=== PATIENT | male | born 1960 | race Caucasian/White ===

== ENCOUNTER 2020-10-28 11:58 | Observation (INO) ==
[2020-10-28 12:39] LABS: Hematocrit 31 % (42-52); Hemoglobin 9.7 g/dL (14.0-18.0); Mean Corpuscular HGB Conc 32 g/dL (31-36); Mean Corpuscular Hemoglobin 28 pg (27-31); Mean Corpuscular Volume 87 fL (80-94); Mean Platelet Volume 6.3 fL (7.4-10.4); Platelet Count 471 10^3/uL (150-450); Red Blood Count 3.52 10^6 /uL (4.18-5.48); Red Cell Distribution Width 20 % (10-15); White Blood Count 18.9 10^3/uL (3.5-10.8)
[2020-10-28 12:43] LABS: ABS Basophils 0.1 10^3/ul (0-0.2); ABS Eosinophils 0.1 10^3/ul (0-0.6); ABS Lymphocytes 0.9 10^3/ul (1.0-4.8); ABS Monocytes 1.2 10^3/ul (0-0.8); ABS Neutrophils 16.7 10^3/ul (1.5-7.7); Eosinophil % 0.3 %; Lymphocyte % 4.9 %
[2020-10-28 13:02] LABS: Albumin 3.2 g/dL (3.2-5.2); Albumin/Globulin Ratio 0.9 (1-3); BUN/Creatinine Ratio 24.1 (8-20); Calcium 9.2 mg/dL (8.6-10.3); EGFR African American 107.9 (>60); EGFR Non-African American 89.2 (>60); Globulin 3.6 g/dL (2-4); Magnesium 1.8 mg/dL (1.9-2.7); Potassium 4.4 mmol/L (3.5-5.0); Total Bilirubin 0.3 mg/dL (0.2-1.0); Total Protein 6.8 g/dL (6.4-8.9)
[2020-10-28] MEDS ORDERED: Nicotine Lozenge mini 2 MG LOZNG.MINI MT PRN (13:41)
[2020-10-28 14:02] LABS: C Reactive Protein 110.26 mg/L (<8.01)
[2020-10-28] MEDS: NS 0.9% 1000 ml BAG 1,000 ML IV SCH (15:57)
[2020-10-28] MEDS ORDERED: Enoxaparin 40 MG/0.4 ML SYR SUBCUT SCH (16:00)
[2020-10-28] MEDS ORDERED: Piperacillin/Tazobac ADVAN 3.375 GM in NS 0.9% 100 ml BAG 100 ML IV ONE (16:11)
[2020-10-28 16:36] LABS: Erythrocyte Sed Rate 92 mm/Hr (0-19)
[2020-10-28] MEDS ORDERED: Zosyn per Pharmacy NOTE FOLLOW UP SCH (17:00)
[2020-10-28] MEDS ORDERED: fentaNYL PATCH 12 MCG/HR 1 PATCH TRANSDERM SCH (20:00)
[2020-10-28 22:21] LABS: Urine Appearance Clear; Urine Bilirubin Negative (Negative); Urine Blood Negative (Negative); Urine Color Yellow; Urine Glucose Negative (Negative); Urine Ketones Negative (Negative); Urine Nitrite Negative (Negative); Urine Protein Negative (Negative); Urine Specific Gravity 1.009 (1.010-1.030); Urine Urobilinogen Negative (Negative)
[2020-10-28 22:35] LABS: Urine Bacteria Absent (Absent); Urine Red Blood Cell Absent (Absent); Urine White Blood Cell Trace(0-5/hpf) (Absent)
[2020-10-28] MEDS: Senna TAB 8.6 mg TAB PO SCH (23:13)
[2020-10-28] MEDS: ZOSYN 3.375 GM Q8H per EXTENDED INFUSION IV SCH (23:15)
[2020-10-29] MEDS: NS 0.9% 1000 ml BAG 1,000 ML IV SCH (02:00)
[2020-10-29] MEDS: ZOSYN 3.375 GM Q8H per EXTENDED INFUSION IV SCH (06:29)
[2020-10-29] MEDS ORDERED: fentaNYL Patch Check Q Shift NOTE FOLLOW UP SCH (07:00)
[2020-10-29 07:37] LABS: ABS Lymphocytes 0.8 10^3/ul (1.0-4.8); ABS Monocytes 1.4 10^3/ul (0-0.8); ABS Neutrophils 13.8 10^3/ul (1.5-7.7); Eosinophil % 0.3 %; Hematocrit 24 % (42-52); Hemoglobin 7.7 g/dL (14.0-18.0); Lymphocyte % 5.3 %; Mean Corpuscular HGB Conc 32 g/dL (31-36); Mean Corpuscular Hemoglobin 28 pg (27-31); Mean Corpuscular Volume 88 fL (80-94); Platelet Count 381 10^3/uL (150-450); Red Cell Distribution Width 20 % (10-15); White Blood Count 16.1 10^3/uL (3.5-10.8)
[2020-10-29 07:58] LABS: Albumin 2.6 g/dL (3.2-5.2); Calcium 8.1 mg/dL (8.6-10.3); Potassium 3.4 mmol/L (3.5-5.0); Total Bilirubin 0.4 mg/dL (0.2-1.0)
[2020-10-29 08:04] LABS: Albumin/Globulin Ratio 0.9 (1-3); EGFR African American 105.1 (>60); EGFR Non-African American 86.9 (>60); Globulin 2.8 g/dL (2-4); Total Protein 5.4 g/dL (6.4-8.9)
[2020-10-29] MEDS ORDERED: Aspirin EC 81 mg TAB.EC (enteric coated) PO SCH (09:00)
[2020-10-29] MEDS: Senna TAB 8.6 mg TAB PO SCH (09:49)
[2020-10-29 13:13] VITALS: BP 91/48
== END 2020-10-29 15:30 | disposition home or self-care (01) ==
LOC: CHOA 11:58 → MED 11:58
PROVIDERS: ADMIT Internal Medicine Hematology & Oncology; ATTEND Internal Medicine Hematology & Oncology

== ENCOUNTER 2021-10-29 14:49 | Inpatient (IN) ==
[2021-10-29 15:23] LABS: Hematocrit 35 % (42-52); Hemoglobin 11.7 g/dL (14.0-18.0); Mean Corpuscular HGB Conc 33 g/dL (31-36); Mean Corpuscular Hemoglobin 26 pg (27-31); Mean Corpuscular Volume 79 fL (80-94); Mean Platelet Volume 6.7 fL (7.4-10.4); Platelet Count 309 10^3/uL (150-450); Red Blood Count 4.49 10^6 /uL (4.18-5.48); Red Cell Distribution Width 19 % (10-15); White Blood Count 21.1 10^3/uL (3.5-10.8)
[2021-10-29 15:37] LABS: Albumin 3.4 g/dL (3.2-5.2); Calcium 8.3 mg/dL (8.6-10.3); Potassium 3.7 mmol/L (3.5-5.0); Total Bilirubin 0.4 mg/dL (0.2-1.0)
[2021-10-29] MEDS ORDERED: Piperacillin/Tazobac ADVAN 3.375 GM in NS 0.9% 100 ml BAG 100 ML IV ONE (15:40)
[2021-10-29] MEDS ORDERED: Albuterol/Ipratropium NEB.SOL (2.5/0.5 MG) 3 ML NEB.SOLN INH PRN (15:40)
[2021-10-29 15:43] LABS: Globulin 3.3 g/dL (2-4); Total Protein 6.7 g/dL (6.4-8.9); eGFR CKD-EPI 97.9 (>60)
[2021-10-29 15:44] LABS: ABS Basophils 0.1 10^3/ul (0-0.2); ABS Lymphocytes 0.6 10^3/ul (1.0-4.8); ABS Monocytes 0.8 10^3/ul (0-0.8); ABS Neutrophils 19.6 10^3/ul (1.5-7.7); Eosinophil % 0.2 %; Lymphocyte % 2.6 %
[2021-10-29] MEDS ORDERED: Zosyn per Pharmacy NOTE FOLLOW UP SCH (16:00)
[2021-10-29 16:50] LABS: C Reactive Protein 162.59 mg/L (<8.01)
[2021-10-29] MEDS ORDERED: NS 0.9% 1000 ml BAG 1,000 ML IV SCH (17:15)
[2021-10-29] MEDS ORDERED: Iohexol 300 (CONTRAST) 10 ML SDV IV ONE (19:27)
[2021-10-29] MEDS: ZOSYN 3.375 GM Q8H per EXTENDED INFUSION IV SCH (21:30)
[2021-10-30] MEDS: ZOSYN 3.375 GM Q8H per EXTENDED INFUSION IV SCH ×3 (04:21→21:52)
[2021-10-30 05:34] LABS: ABS Eosinophils 0.1 10^3/ul (0-0.6); ABS Lymphocytes 0.8 10^3/ul (1.0-4.8); ABS Monocytes 0.8 10^3/ul (0-0.8); ABS Neutrophils 18.7 10^3/ul (1.5-7.7); Eosinophil % 0.6 %; Hematocrit 31 % (42-52); Hemoglobin 10.1 g/dL (14.0-18.0); Lymphocyte % 3.9 %; Mean Corpuscular HGB Conc 33 g/dL (31-36); Mean Corpuscular Hemoglobin 26 pg (27-31); Mean Corpuscular Volume 79 fL (80-94); Mean Platelet Volume 6.6 fL (7.4-10.4); Platelet Count 280 10^3/uL (150-450); Red Blood Count 3.93 10^6 /uL (4.18-5.48); Red Cell Distribution Width 19 % (10-15); White Blood Count 20.5 10^3/uL (3.5-10.8)
[2021-10-30 05:57] LABS: Albumin 2.8 g/dL (3.2-5.2); Albumin/Globulin Ratio 1.2 (1-3); Calcium 7.7 mg/dL (8.6-10.3); Globulin 2.4 g/dL (2-4); Potassium 3.6 mmol/L (3.5-5.0); Total Bilirubin 0.3 mg/dL (0.2-1.0); Total Protein 5.2 g/dL (6.4-8.9); eGFR CKD-EPI 87.2 (>60)
[2021-10-30] MEDS: Senna TAB 8.6 mg TAB PO SCH (10:18)
[2021-10-30] MEDS: methylPREDNISolone 125 mg 2 ML VIAL IV SCH (11:20)
[2021-10-30] MEDS: Albuterol/Ipratropium NEB.SOL (2.5/0.5 MG) 3 ML NEB.SOLN INH SCH ×3 (12:02→19:41)
[2021-10-30] MEDS ORDERED: Dextran 70/Hypromellose Tears Eye Drops 15 ml BTL (for Artificials Tears) BOTH EYES PRN (21:12)
[2021-10-31] MEDS: methylPREDNISolone 125 mg 2 ML VIAL IV SCH ×3 (00:34→21:59)
[2021-10-31] MEDS: ZOSYN 3.375 GM Q8H per EXTENDED INFUSION IV SCH ×3 (03:56→21:40)
[2021-10-31] MEDS: Albuterol/Ipratropium NEB.SOL (2.5/0.5 MG) 3 ML NEB.SOLN INH SCH ×5 (08:31→19:49)
[2021-10-31] MEDS: Senna TAB 8.6 mg TAB PO SCH (10:24)
[2021-10-31] MEDS ORDERED: Albuterol 2.5mg/3 ml (0.083%) NEB.SOLN INH PRN (17:12)
[2021-10-31] MEDS: Mometasone/Formoter 200/5 MDI INH SCH (19:47)
[2021-11-01] MEDS: ZOSYN 3.375 GM Q8H per EXTENDED INFUSION IV SCH ×3 (04:50→21:29)
[2021-11-01 05:01] LABS: Hematocrit 33 % (42-52); Hemoglobin 10.7 g/dL (14.0-18.0); Mean Corpuscular HGB Conc 32 g/dL (31-36); Mean Corpuscular Hemoglobin 25 pg (27-31); Mean Corpuscular Volume 79 fL (80-94); Mean Platelet Volume 6.6 fL (7.4-10.4); Platelet Count 322 10^3/uL (150-450); Red Blood Count 4.22 10^6 /uL (4.18-5.48); Red Cell Distribution Width 19 % (10-15)
[2021-11-01 05:27] LABS: ABS Lymphocytes 0.5 10^3/ul (1.0-4.8); ABS Monocytes 0.9 10^3/ul (0-0.8); ABS Neutrophils 26.6 10^3/ul (1.5-7.7); Lymphocyte % 1.7 %
[2021-11-01 05:35] LABS: Calcium 8.7 mg/dL (8.6-10.3); Potassium 4.4 mmol/L (3.5-5.0); eGFR CKD-EPI 104.6 (>60)
[2021-11-01] MEDS: Albuterol/Ipratropium NEB.SOL (2.5/0.5 MG) 3 ML NEB.SOLN INH SCH ×4 (07:58→19:42)
[2021-11-01 09:18] LABS: C Reactive Protein 38.13 mg/L (<8.01)
[2021-11-01] MEDS: Mometasone/Formoter 200/5 MDI INH SCH ×2 (09:49→19:42)
[2021-11-01] MEDS: Senna TAB 8.6 mg TAB PO SCH (10:13)
[2021-11-01] MEDS: Carbamide Peroxide 6.5% OTIC 15 ML BTL RIGHT EAR SCH (21:30)
[2021-11-02] MEDS: ZOSYN 3.375 GM Q8H per EXTENDED INFUSION IV SCH ×3 (04:26→19:47)
[2021-11-02 04:42] LABS: Hematocrit 35 % (42-52); Hemoglobin 11.1 g/dL (14.0-18.0); Mean Corpuscular HGB Conc 32 g/dL (31-36); Mean Corpuscular Hemoglobin 25 pg (27-31); Mean Corpuscular Volume 79 fL (80-94); Mean Platelet Volume 6.4 fL (7.4-10.4); Platelet Count 322 10^3/uL (150-450); Red Blood Count 4.39 10^6 /uL (4.18-5.48); Red Cell Distribution Width 19 % (10-15); White Blood Count 23.4 10^3/uL (3.5-10.8)
[2021-11-02 05:15] LABS: Calcium 8.3 mg/dL (8.6-10.3); Magnesium 1.7 mg/dL (1.9-2.7); Potassium 4.5 mmol/L (3.5-5.0); eGFR CKD-EPI 79.3 (>60)
[2021-11-02 05:34] LABS: ABS Lymphocytes 1.2 10^3/ul (1.0-4.8); ABS Monocytes 1.7 10^3/ul (0-0.8); ABS Neutrophils 20.5 10^3/ul (1.5-7.7); Eosinophil % 0.1 %
[2021-11-02] MEDS: Albuterol/Ipratropium NEB.SOL (2.5/0.5 MG) 3 ML NEB.SOLN INH SCH (07:05)
[2021-11-02] MEDS: Mometasone/Formoter 200/5 MDI INH SCH ×3 (08:03→20:11)
[2021-11-02] MEDS ORDERED: Albuterol/Ipratropium NEB.SOL (2.5/0.5 MG) 3 ML NEB.SOLN INH PRN ×2 (08:51→08:55)
[2021-11-02] MEDS: Senna TAB 8.6 mg TAB PO SCH (09:05)
[2021-11-02] MEDS: methylPREDNISolone 125 mg 2 ML VIAL IV SCH (09:05)
[2021-11-02] MEDS: Carbamide Peroxide 6.5% OTIC 15 ML BTL RIGHT EAR SCH ×2 (09:07→21:07)
[2021-11-02] MEDS: Albuterol HFA INHALER 8 gm MDI INH PRN (15:16)
[2021-11-02] MEDS ORDERED: Metoprolol Tartrate 5 mg VIAL 5 ml VIAL (1 mg/ml) IV ONE ×2 (17:11→18:05)
[2021-11-02] MEDS ORDERED: Magnesium Sulfate 2 gm BAG 2 GM/50 ML BAG IVPB ONE (17:12)
[2021-11-02] MEDS ORDERED: Iohexol 350 (CONTRAST) 500 ML MDV IV ONE (17:16)
[2021-11-02] MEDS: Enoxaparin 60 MG/0.6 ML SYR SUBCUT SCH (19:51)
[2021-11-03] MEDS: ZOSYN 3.375 GM Q8H per EXTENDED INFUSION IV SCH ×3 (04:09→21:30)
[2021-11-03 04:27] LABS: Hematocrit 33 % (42-52); Hemoglobin 10.5 g/dL (14.0-18.0); Mean Corpuscular HGB Conc 32 g/dL (31-36); Mean Corpuscular Hemoglobin 25 pg (27-31); Mean Corpuscular Volume 80 fL (80-94); Mean Platelet Volume 6.6 fL (7.4-10.4); Platelet Count 301 10^3/uL (150-450); Red Blood Count 4.17 10^6 /uL (4.18-5.48); Red Cell Distribution Width 20 % (10-15); White Blood Count 28.6 10^3/uL (3.5-10.8)
[2021-11-03 04:28] LABS: ABS Lymphocytes 1.1 10^3/ul (1.0-4.8); ABS Monocytes 1.3 10^3/ul (0-0.8); ABS Neutrophils 26.2 10^3/ul (1.5-7.7); Eosinophil % 0.2 %; Lymphocyte % 3.9 %
[2021-11-03 05:08] LABS: Albumin/Globulin Ratio 1.2 (1-3); Calcium 8.4 mg/dL (8.6-10.3); Globulin 2.5 g/dL (2-4); Potassium 4.4 mmol/L (3.5-5.0); Total Bilirubin 0.3 mg/dL (0.2-1.0); Total Protein 5.5 g/dL (6.4-8.9); eGFR CKD-EPI 100.4 (>60)
[2021-11-03] MEDS: Albuterol HFA INHALER 8 gm MDI INH PRN ×2 (07:16→12:55)
[2021-11-03] MEDS: Mometasone/Formoter 200/5 MDI INH SCH ×2 (07:16→20:01)
[2021-11-03 09:03] LABS: C Reactive Protein 149.67 mg/L (<8.01)
[2021-11-03] MEDS: Senna TAB 8.6 mg TAB PO SCH (09:33)
[2021-11-03] MEDS: Carbamide Peroxide 6.5% OTIC 15 ML BTL RIGHT EAR SCH ×2 (09:36→21:31)
[2021-11-03] MEDS: Enoxaparin 60 MG/0.6 ML SYR SUBCUT SCH ×2 (09:36→09:43)
[2021-11-03] MEDS: methylPREDNISolone 125 mg 2 ML VIAL IV SCH (09:37)
[2021-11-03] MEDS ORDERED: Albuterol/Ipratropium NEB.SOL (2.5/0.5 MG) 3 ML NEB.SOLN INH SCH (13:00)
[2021-11-03] MEDS ORDERED: Albuterol/Ipratropium NEB.SOL (2.5/0.5 MG) 3 ML NEB.SOLN INH PRN (16:09)
[2021-11-03] MEDS: Enoxaparin 80 MG/0.8 ML SYR SUBCUT SCH (18:10)
[2021-11-03] MEDS: Albuterol HFA INHALER 8 gm MDI INH SCH ×2 (20:00→23:00)
[2021-11-04] MEDS: Albuterol HFA INHALER 8 gm MDI INH SCH ×4 (03:23→14:43)
[2021-11-04] MEDS: ZOSYN 3.375 GM Q8H per EXTENDED INFUSION IV SCH ×3 (04:15→20:15)
[2021-11-04 05:04] LABS: Hematocrit 36 % (42-52); Hemoglobin 11.5 g/dL (14.0-18.0); Mean Corpuscular HGB Conc 32 g/dL (31-36); Mean Corpuscular Hemoglobin 25 pg (27-31); Mean Corpuscular Volume 79 fL (80-94); Mean Platelet Volume 6.8 fL (7.4-10.4); Platelet Count 350 10^3/uL (150-450); Red Blood Count 4.57 10^6 /uL (4.18-5.48); Red Cell Distribution Width 19 % (10-15); White Blood Count 30.9 10^3/uL (3.5-10.8)
[2021-11-04 05:11] LABS: ABS Eosinophils 0.1 10^3/ul (0-0.6); ABS Lymphocytes 1.2 10^3/ul (1.0-4.8); ABS Monocytes 1.1 10^3/ul (0-0.8); ABS Neutrophils 28.5 10^3/ul (1.5-7.7); Eosinophil % 0.2 %; Lymphocyte % 3.9 %; Nucleated Red Blood Cells % 0.1
[2021-11-04] MEDS: Enoxaparin 80 MG/0.8 ML SYR SUBCUT SCH (05:24)
[2021-11-04 05:26] LABS: C Reactive Protein 90.86 mg/L (<8.01); Calcium 8.8 mg/dL (8.6-10.3); Potassium 4.4 mmol/L (3.5-5.0); eGFR CKD-EPI 104.6 (>60)
[2021-11-04] MEDS: Mometasone/Formoter 200/5 MDI INH SCH ×2 (07:30→19:35)
[2021-11-04] MEDS: methylPREDNISolone 125 mg 2 ML VIAL IV SCH (08:21)
[2021-11-04] MEDS: Senna TAB 8.6 mg TAB PO SCH (08:21)
[2021-11-04] MEDS: Carbamide Peroxide 6.5% OTIC 15 ML BTL RIGHT EAR SCH ×2 (08:24→20:16)
[2021-11-04] MEDS: Albuterol 2.5mg/3 ml (0.083%) NEB.SOLN INH SCH (15:37)
[2021-11-05] MEDS: Albuterol HFA INHALER 8 gm MDI INH SCH ×3 (02:50→08:04)
[2021-11-05] MEDS: ZOSYN 3.375 GM Q8H per EXTENDED INFUSION IV SCH ×3 (04:00→20:54)
[2021-11-05 04:17] LABS: Hematocrit 35 % (42-52); Hemoglobin 11.2 g/dL (14.0-18.0); Mean Corpuscular HGB Conc 32 g/dL (31-36); Mean Corpuscular Hemoglobin 26 pg (27-31); Mean Corpuscular Volume 79 fL (80-94); Mean Platelet Volume 6.6 fL (7.4-10.4); Platelet Count 365 10^3/uL (150-450); Red Blood Count 4.39 10^6 /uL (4.18-5.48); Red Cell Distribution Width 20 % (10-15); White Blood Count 27.5 10^3/uL (3.5-10.8)
[2021-11-05 04:27] LABS: ABS Basophils 0.2 10^3/ul (0-0.2); ABS Eosinophils 0.1 10^3/ul (0-0.6); ABS Lymphocytes 1.5 10^3/ul (1.0-4.8); ABS Neutrophils 24.8 10^3/ul (1.5-7.7); Eosinophil % 0.2 %; Lymphocyte % 5.3 %
[2021-11-05] MEDS: Albuterol 2.5mg/3 ml (0.083%) NEB.SOLN INH SCH ×2 (04:33→04:43)
[2021-11-05] MEDS: Mometasone/Formoter 200/5 MDI INH SCH ×2 (08:04→19:57)
[2021-11-05] MEDS: Senna TAB 8.6 mg TAB PO SCH (08:14)
[2021-11-05] MEDS: Carbamide Peroxide 6.5% OTIC 15 ML BTL RIGHT EAR SCH ×2 (09:19→20:37)
[2021-11-05] MEDS: methylPREDNISolone 125 mg 2 ML VIAL IV SCH (09:20)
[2021-11-05] MEDS ORDERED: Albuterol HFA INHALER 8 gm MDI INH PRN (09:51)
[2021-11-05] MEDS: Albuterol/Ipratropium NEB.SOL (2.5/0.5 MG) 3 ML NEB.SOLN INH SCH ×3 (10:44→19:57)
[2021-11-06] MEDS: ZOSYN 3.375 GM Q8H per EXTENDED INFUSION IV SCH ×2 (04:44→13:02)
[2021-11-06] MEDS: Albuterol/Ipratropium NEB.SOL (2.5/0.5 MG) 3 ML NEB.SOLN INH SCH ×3 (07:32→15:31)
[2021-11-06] MEDS: Mometasone/Formoter 200/5 MDI INH SCH ×2 (07:34→20:04)
[2021-11-06] MEDS: Senna TAB 8.6 mg TAB PO SCH (08:35)
[2021-11-06] MEDS: methylPREDNISolone 125 mg 2 ML VIAL IV SCH (08:35)
[2021-11-06] MEDS: Carbamide Peroxide 6.5% OTIC 15 ML BTL RIGHT EAR SCH ×3 (09:57→20:56)
[2021-11-06] MEDS: Albuterol HFA INHALER 8 gm MDI INH SCH (20:05)
[2021-11-06 23:49] LABS: Cryptococcus Antigen w/Titer Negative (Negative)
[2021-11-06 23:58] LABS: Aspergillus (Galactomannan) Ag <0.500 index (<0.5)
[2021-11-07] MEDS: Mometasone/Formoter 200/5 MDI INH SCH ×2 (07:49→19:47)
[2021-11-07] MEDS: Albuterol HFA INHALER 8 gm MDI INH SCH ×2 (07:49→19:46)
[2021-11-07] MEDS: Carbamide Peroxide 6.5% OTIC 15 ML BTL RIGHT EAR SCH ×2 (08:58→22:04)
[2021-11-07] MEDS: Senna TAB 8.6 mg TAB PO SCH (09:00)
[2021-11-07] MEDS: methylPREDNISolone 125 mg 2 ML VIAL IV SCH (09:00)
[2021-11-08] MEDS: Albuterol HFA INHALER 8 gm MDI INH SCH ×2 (08:13→18:59)
[2021-11-08] MEDS: Mometasone/Formoter 200/5 MDI INH SCH ×2 (08:14→18:58)
[2021-11-08] MEDS: Carbamide Peroxide 6.5% OTIC 15 ML BTL RIGHT EAR SCH ×2 (08:21→20:10)
[2021-11-08] MEDS: methylPREDNISolone 125 mg 2 ML VIAL IV SCH (08:22)
[2021-11-08] MEDS: Senna TAB 8.6 mg TAB PO SCH (08:23)
[2021-11-09 05:25] LABS: Hematocrit 38 % (42-52); Hemoglobin 11.7 g/dL (14.0-18.0); Mean Corpuscular HGB Conc 31 g/dL (31-36); Mean Corpuscular Hemoglobin 25 pg (27-31); Mean Corpuscular Volume 79 fL (80-94); Mean Platelet Volume 6.9 fL (7.4-10.4); Platelet Count 446 10^3/uL (150-450); Red Blood Count 4.73 10^6 /uL (4.18-5.48); Red Cell Distribution Width 20 % (10-15); White Blood Count 32.4 10^3/uL (3.5-10.8)
[2021-11-09 05:46] LABS: Albumin 3.4 g/dL (3.2-5.2); Albumin/Globulin Ratio 1.3 (1-3); Calcium 8.9 mg/dL (8.6-10.3); Globulin 2.6 g/dL (2-4); Total Bilirubin 0.3 mg/dL (0.2-1.0); eGFR CKD-EPI 100.8 (>60)
[2021-11-09] MEDS: Mometasone/Formoter 200/5 MDI INH SCH ×2 (07:41→20:02)
[2021-11-09] MEDS: Albuterol HFA INHALER 8 gm MDI INH SCH ×2 (07:43→20:02)
[2021-11-09] MEDS ORDERED: Calcium Carb (TUMS) 500 mg CHEW TAB PO PRN (08:26)
[2021-11-09] MEDS: Senna TAB 8.6 mg TAB PO SCH (09:13)
[2021-11-09] MEDS: methylPREDNISolone 125 mg 2 ML VIAL IV SCH (09:16)
[2021-11-09] MEDS: Carbamide Peroxide 6.5% OTIC 15 ML BTL RIGHT EAR SCH ×2 (13:22→21:22)
[2021-11-10 07:20] VITALS: BP 107/64
[2021-11-10] MEDS: Mometasone/Formoter 200/5 MDI INH SCH (07:38)
[2021-11-10] MEDS: Albuterol HFA INHALER 8 gm MDI INH SCH (07:38)
[2021-11-10] MEDS: Senna TAB 8.6 mg TAB PO SCH (09:56)
[2021-11-10] MEDS: Carbamide Peroxide 6.5% OTIC 15 ML BTL RIGHT EAR SCH (09:59)
[2021-11-10] MEDS: methylPREDNISolone 125 mg 2 ML VIAL IV SCH (09:59)
== END 2021-11-10 11:15 | disposition home or self-care (01) | DRG 133 ==
LOC: MED 14:49 → CHOA 14:49
PROVIDERS: ADMIT Internal Medicine Medical Oncology; ATTEND Internal Medicine Hematology & Oncology

== ENCOUNTER 2021-12-18 17:33 | Inpatient (IN) ==
[2021-12-18 18:09] LABS: Hematocrit 28 % (42-52); Hemoglobin 8.9 g/dL (14.0-18.0); Mean Corpuscular HGB Conc 32 g/dL (31-36); Mean Corpuscular Hemoglobin 25 pg (27-31); Mean Corpuscular Volume 76 fL (80-94); Mean Platelet Volume 6.4 fL (7.4-10.4); Platelet Count 452 10^3/uL (150-450); Red Blood Count 3.63 10^6 /uL (4.18-5.48); Red Cell Distribution Width 21 % (10-15); White Blood Count 37.1 10^3/uL (3.5-10.8)
[2021-12-18] MEDS ORDERED: Vancomycin 1,250 MG in NS 0.9% 250 ml 250 ML IVPB ONE (18:14)
[2021-12-18] MEDS ORDERED: Piperacillin/Tazobac ADVAN 3.375 GM in NS 0.9% 100 ml BAG 100 ML IV ONE (18:14)
[2021-12-18] MEDS ORDERED: NS 0.9% 1000 ml BAG 1,000 ML IV ONE ×2 (18:19→23:17)
[2021-12-18 18:33] LABS: Venous Bicarbonate HCO3 23.1 mmol/L (24-28)
[2021-12-18 18:44] LABS: ABS Basophils 0.1 10^3/ul (0-0.2); ABS Lymphocytes 0.4 10^3/ul (1.0-4.8); ABS Monocytes 1.2 10^3/ul (0-0.8); ABS Neutrophils 35.4 10^3/ul (1.5-7.7); Lymphocyte % 1.1 %
[2021-12-18 18:45] LABS: Calcium 8.4 mg/dL (8.6-10.3); Potassium 5.1 mmol/L (3.5-5.0)
[2021-12-18] MEDS ORDERED: Ketamine HCL 50 mg/ml 10 ml VIAL (500 MG) IV ONE (18:48)
[2021-12-18] MEDS ORDERED: Iohexol 350 (CONTRAST) 500 ML MDV IV ONE (20:20)
[2021-12-18] MEDS ORDERED: Albuterol HFA INHALER 8 gm MDI INH PRN (23:43)
[2021-12-18] MEDS ORDERED: Vancomycin per Pharmacy 1 EA NOTE FOLLOW UP SCH (23:45)
[2021-12-18 23:51] LABS: C Reactive Protein 260.39 mg/L (<8.01)
[2021-12-19 00:55] LABS: Urine Appearance Clear; Urine Bilirubin Negative (Negative); Urine Blood 1+ (Negative); Urine Color Straw; Urine Glucose Negative (Negative); Urine Ketones Negative (Negative); Urine Nitrite Negative (Negative); Urine Protein Negative (Negative); Urine Specific Gravity 1.019 (1.002-1.030); Urine Urobilinogen Negative (Negative)
[2021-12-19 01:01] LABS: Urine Bacteria Absent (Absent); Urine Red Blood Cell Trace(0-2/hpf) (Absent); Urine White Blood Cell Absent (Absent)
[2021-12-19 01:11] LABS: Urine Creatinine Concentration 35.67 mg/dL
[2021-12-19] MEDS ORDERED: Cefepime 2 GM IV - ED ONCE IV ONE (01:30)
[2021-12-19] MEDS: Cefepime 2 GM in Dextrose 2 GM/50 ML BAG IV SCH ×2 (01:36→12:52)
[2021-12-19] MEDS: Hydrocortisone INJ 100 MG/2ML 2 ML VIAL IV SCH ×5 (01:40→20:30)
[2021-12-19] MEDS ORDERED: Norepinephrine 16MCG/ML BAGD5W 4,000 MCG/250 ML BAG IV ONE (01:44)
[2021-12-19] MEDS: Norepinephrine 16MCG/ML BAGD5W 4,000 MCG/250 ML BAG IV SCH ×2 (01:56→09:04)
[2021-12-19 05:42] LABS: Hematocrit 28 % (42-52); Hemoglobin 8.8 g/dL (14.0-18.0); Mean Corpuscular HGB Conc 31 g/dL (31-36); Mean Corpuscular Hemoglobin 24 pg (27-31); Mean Corpuscular Volume 77 fL (80-94); Mean Platelet Volume 6.5 fL (7.4-10.4); Platelet Count 509 10^3/uL (150-450); Red Blood Count 3.64 10^6 /uL (4.18-5.48); Red Cell Distribution Width 20 % (10-15); White Blood Count 46.1 10^3/uL (3.5-10.8)
[2021-12-19 05:47] LABS: ABS Basophils 0.2 10^3/ul (0-0.2); ABS Lymphocytes 0.3 10^3/ul (1.0-4.8); ABS Monocytes 0.9 10^3/ul (0-0.8); ABS Neutrophils 44.8 10^3/ul (1.5-7.7); Lymphocyte % 0.6 %
[2021-12-19 06:16] LABS: Calcium 8.1 mg/dL (8.6-10.3); Magnesium 1.8 mg/dL (1.9-2.7); Phosphorus 3.5 mg/dL (2.5-5.0); Potassium 4.3 mmol/L (3.5-5.0); eGFR CKD-EPI 62.1 (>60)
[2021-12-19] MEDS ORDERED: Magnesium Sulfate 2 gm BAG 2 GM/50 ML BAG IVPB ONE (06:24)
[2021-12-19] MEDS ORDERED: Dextrose 50% Syringe 50 ml 25 GM/50 ML SYRINGE IV PUSH PRN (06:42)
[2021-12-19] MEDS: Aspirin EC 81 mg TAB.EC (enteric coated) PO SCH (08:27)
[2021-12-19] MEDS: Senna TAB 8.6 mg TAB PO SCH (08:28)
[2021-12-19] MEDS ORDERED: DEXAMETHASONE 2 MG PO SCH (09:00)
[2021-12-19] MEDS: Vancomycin 1000 MG in NS 0.9% 250 ML IVPB SCH ×2 (09:08→19:49)
[2021-12-19] MEDS: Mometasone/Formoter 200/5 MDI INH SCH (09:34)
[2021-12-19] MEDS: Pantoprazole VIAL 40 MG VIAL IV SCH (12:51)
[2021-12-19] MEDS: NS 0.9% 1000 ml BAG 1,000 ML IV SCH (15:50)
[2021-12-19] MEDS ORDERED: Dextran 70/Hypromellose Tears Eye Drops 15 ml BTL (for Artificials Tears) RIGHT EYE PRN (23:39)
[2021-12-20] MEDS: Cefepime 2 GM in Dextrose 2 GM/50 ML BAG IV SCH ×2 (02:13→13:56)
[2021-12-20] MEDS: NS 0.9% 1000 ml BAG 1,000 ML IV SCH (04:10)
[2021-12-20] MEDS: Mometasone/Formoter 200/5 MDI INH SCH ×3 (04:40→21:43)
[2021-12-20] MEDS: Hydrocortisone INJ 100 MG/2ML 2 ML VIAL IV SCH ×3 (04:40→17:59)
[2021-12-20 04:51] LABS: Hematocrit 26 % (42-52); Hemoglobin 8.3 g/dL (14.0-18.0); Mean Corpuscular HGB Conc 32 g/dL (31-36); Mean Corpuscular Hemoglobin 24 pg (27-31); Mean Corpuscular Volume 76 fL (80-94); Mean Platelet Volume 6.3 fL (7.4-10.4); Platelet Count 449 10^3/uL (150-450); Red Blood Count 3.41 10^6 /uL (4.18-5.48); Red Cell Distribution Width 20 % (10-15); White Blood Count 43.1 10^3/uL (3.5-10.8)
[2021-12-20 04:53] LABS: ABS Lymphocytes 0.5 10^3/ul (1.0-4.8); ABS Monocytes 0.8 10^3/ul (0-0.8); ABS Neutrophils 41.7 10^3/ul (1.5-7.7); Eosinophil % 0.1 %; Lymphocyte % 1.2 %
[2021-12-20 05:17] LABS: Calcium 7.9 mg/dL (8.6-10.3); Phosphorus 2.2 mg/dL (2.5-5.0); Potassium 4.3 mmol/L (3.5-5.0); eGFR CKD-EPI 106.5 (>60)
[2021-12-20] MEDS ORDERED: NS 0.9% 250 ml 250 ML ONE (08:00)
[2021-12-20] MEDS: Vancomycin 1000 MG in NS 0.9% 250 ML IVPB SCH ×2 (08:06→21:14)
[2021-12-20] MEDS: Aspirin EC 81 mg TAB.EC (enteric coated) PO SCH (08:06)
[2021-12-20] MEDS: Senna TAB 8.6 mg TAB PO SCH (08:07)
[2021-12-20] MEDS: Pantoprazole VIAL 40 MG VIAL IV SCH (12:09)
[2021-12-21] MEDS: Cefepime 2 GM in Dextrose 2 GM/50 ML BAG IV SCH ×2 (00:59→13:40)
[2021-12-21] MEDS: Hydrocortisone INJ 100 MG/2ML 2 ML VIAL IV SCH ×3 (00:59→17:03)
[2021-12-21] MEDS ORDERED: Vancomycin Trough Check NOTE FOLLOW UP ONE (07:30)
[2021-12-21 07:33] LABS: Hematocrit 29 % (42-52); Hemoglobin 9.1 g/dL (14.0-18.0); Mean Corpuscular HGB Conc 31 g/dL (31-36); Mean Corpuscular Hemoglobin 24 pg (27-31); Mean Corpuscular Volume 77 fL (80-94); Mean Platelet Volume 6.1 fL (7.4-10.4); Platelet Count 454 10^3/uL (150-450); Red Cell Distribution Width 20 % (10-15); White Blood Count 40.2 10^3/uL (3.5-10.8)
[2021-12-21 07:42] LABS: ABS Lymphocytes 0.5 10^3/ul (1.0-4.8); ABS Neutrophils 38.7 10^3/ul (1.5-7.7); Lymphocyte % 1.2 %
[2021-12-21 08:13] LABS: Calcium 8.3 mg/dL (8.6-10.3); Magnesium 1.7 mg/dL (1.9-2.7); Potassium 3.6 mmol/L (3.5-5.0); eGFR CKD-EPI 111.4 (>60)
[2021-12-21] MEDS: Mometasone/Formoter 200/5 MDI INH SCH ×2 (09:01→19:34)
[2021-12-21] MEDS: Aspirin EC 81 mg TAB.EC (enteric coated) PO SCH (09:24)
[2021-12-21] MEDS: Vancomycin 1000 MG in NS 0.9% 250 ML IVPB SCH (09:24)
[2021-12-21] MEDS: Senna TAB 8.6 mg TAB PO SCH (09:25)
[2021-12-21] MEDS: Pantoprazole VIAL 40 MG VIAL IV SCH (11:41)
[2021-12-21] MEDS: Vancomycin 1,250 MG in NS 0.9% 250 ml 250 ML IVPB SCH (17:03)
[2021-12-22] MEDS: Cefepime 2 GM in Dextrose 2 GM/50 ML BAG IV SCH ×2 (01:18→13:38)
[2021-12-22] MEDS: Hydrocortisone INJ 100 MG/2ML 2 ML VIAL IV SCH ×3 (01:18→19:53)
[2021-12-22] MEDS: Vancomycin 1,250 MG in NS 0.9% 250 ml 250 ML IVPB SCH ×2 (05:15→17:12)
[2021-12-22] MEDS: Aspirin EC 81 mg TAB.EC (enteric coated) PO SCH (07:43)
[2021-12-22] MEDS: Senna TAB 8.6 mg TAB PO SCH (07:43)
[2021-12-22] MEDS: Mometasone/Formoter 200/5 MDI INH SCH ×2 (08:00→19:15)
[2021-12-22 08:12] LABS: Hematocrit 29 % (42-52); Hemoglobin 9.2 g/dL (14.0-18.0); Mean Corpuscular HGB Conc 31 g/dL (31-36); Mean Corpuscular Hemoglobin 24 pg (27-31); Mean Corpuscular Volume 78 fL (80-94); Mean Platelet Volume 6.3 fL (7.4-10.4); Platelet Count 443 10^3/uL (150-450); Red Blood Count 3.78 10^6 /uL (4.18-5.48); Red Cell Distribution Width 21 % (10-15)
[2021-12-22 09:02] LABS: Albumin 2.5 g/dL (3.2-5.2); Albumin/Globulin Ratio 0.9 (1-3); Globulin 2.7 g/dL (2-4); Potassium 3.2 mmol/L (3.5-5.0); Total Bilirubin 0.3 mg/dL (0.2-1.0); Total Protein 5.2 g/dL (6.4-8.9); eGFR CKD-EPI 114.6 (>60)
[2021-12-22 09:09] LABS: ABS Lymphocytes 0.7 10^3/ul (1.0-4.8); ABS Monocytes 1.1 10^3/ul (0-0.8); ABS Neutrophils 42.2 10^3/ul (1.5-7.7); Lymphocyte % 1.5 %
[2021-12-22] MEDS: Pantoprazole VIAL 40 MG VIAL IV SCH (12:04)
[2021-12-23] MEDS: Cefepime 2 GM in Dextrose 2 GM/50 ML BAG IV SCH (01:56)
[2021-12-23 04:38] LABS: Albumin 2.5 g/dL (3.2-5.2); Globulin 2.4 g/dL (2-4); Potassium 3.5 mmol/L (3.5-5.0); Total Bilirubin 0.3 mg/dL (0.2-1.0); Total Protein 4.9 g/dL (6.4-8.9); Vancomycin Trough 13.3 mcg/mL; eGFR CKD-EPI 112.7 (>60)
[2021-12-23] MEDS ORDERED: Vancomycin Trough Check NOTE FOLLOW UP ONE (05:30)
[2021-12-23] MEDS: Vancomycin 1,250 MG in NS 0.9% 250 ml 250 ML IVPB SCH (05:48)
[2021-12-23] MEDS: Mometasone/Formoter 200/5 MDI INH SCH (07:48)
[2021-12-23] MEDS: Senna TAB 8.6 mg TAB PO SCH (08:53)
[2021-12-23] MEDS: Aspirin EC 81 mg TAB.EC (enteric coated) PO SCH (08:53)
[2021-12-23] MEDS: Hydrocortisone INJ 100 MG/2ML 2 ML VIAL IV SCH (08:53)
[2021-12-23 15:37] VITALS: BP 125/68
== END 2021-12-23 16:45 | disposition home or self-care (01) | DRG 720 ==
LOC: ED 17:33 → EDHOLD 23:13 → ICU 12-19 00:18 → MED 12-20 12:53
PROVIDERS: ADMIT Student in an Organized Health Care Education/Training Program; ATTEND Internal Medicine Medical Oncology

== ENCOUNTER 2021-12-26 12:04 | Inpatient (IN) ==
[2021-12-26] MEDS ORDERED: Cefepime 2 GM in Dextrose 2 GM/50 ML BAG IV ONE (12:37)
[2021-12-26] MEDS ORDERED: Lactated Ringers 1000 ml BAG 1,000 ML IV ONE ×3 (12:40→17:04)
[2021-12-26] MEDS ORDERED: Vancomycin 1,000 MG in NS 0.9% 250 ml 250 ML IVPB SCH (13:00)
[2021-12-26 13:17] LABS: Hematocrit 26 % (42-52); Hemoglobin 8.1 g/dL (14.0-18.0); Mean Corpuscular HGB Conc 31 g/dL (31-36); Mean Corpuscular Hemoglobin 24 pg (27-31); Mean Corpuscular Volume 76 fL (80-94); Mean Platelet Volume 6.8 fL (7.4-10.4); Platelet Count 370 10^3/uL (150-450); Red Blood Count 3.46 10^6 /uL (4.18-5.48); Red Cell Distribution Width 21 % (10-15); White Blood Count 31.4 10^3/uL (3.5-10.8)
[2021-12-26 13:26] LABS: Activated Partial Thrombo Time 33.3 seconds (26.0-38.0); INR 1.4 (0.86-1.15)
[2021-12-26 13:52] LABS: Albumin 2.5 g/dL (3.2-5.2); Calcium 7.9 mg/dL (8.6-10.3); Globulin 2.4 g/dL (2-4); Potassium 4.2 mmol/L (3.5-5.0); Total Bilirubin 0.6 mg/dL (0.2-1.0); Total Protein 4.9 g/dL (6.4-8.9); eGFR CKD-EPI 97.6 (>60)
[2021-12-26] MEDS ORDERED: Vancomycin 1,000 MG - ED ONCE IVPB ONE (14:00)
[2021-12-26 14:40] LABS: Erythrocyte Sed Rate 91 mm/Hr (0-19)
[2021-12-26 15:03] LABS: High Sensitivity Troponin 1 Hr 247 pg/mL (<20)
[2021-12-26 15:25] LABS: ABS Eosinophils 0.1 10^3/ul (0-0.6); ABS Lymphocytes 0.7 10^3/ul (1.0-4.8); ABS Monocytes 1.6 10^3/ul (0-0.8); ABS Neutrophils 28.8 10^3/ul (1.5-7.7); Eosinophil % 0.4 %; Lymphocyte % 2.3 %; Nucleated Red Blood Cells % 0.1
[2021-12-26] MEDS ORDERED: Piperacillin/Tazobac ADVAN 3.375 GM in NS 0.9% 100 ml BAG 100 ML IV ONE (17:01)
[2021-12-26] MEDS ORDERED: Dextran 70/Hypromellose Tears Eye Drops 15 ml BTL (for Artificials Tears) RIGHT EYE PRN (17:43)
[2021-12-26] MEDS ORDERED: Albuterol HFA INHALER 8 gm MDI INH PRN (17:43)
[2021-12-26] MEDS ORDERED: Zosyn per Pharmacy NOTE FOLLOW UP SCH (18:00)
[2021-12-26 18:16] LABS: Urine Appearance Cloudy; Urine Bilirubin Negative (Negative); Urine Blood 1+ (Negative); Urine Color Yellow; Urine Glucose Negative (Negative); Urine Ketones Negative (Negative); Urine Nitrite Negative (Negative); Urine Protein 1+(30 mg/dL) (Negative); Urine Specific Gravity 1.015 (1.002-1.030); Urine Urobilinogen Negative (Negative)
[2021-12-26 18:38] LABS: Urine Bacteria Absent (Absent); Urine Red Blood Cell 1+(3-5/hpf) (Absent); Urine Squamous Epithelial Cell Present (Absent); Urine White Blood Cell 1+(6-10/hpf) (Absent)
[2021-12-26] MEDS: Hydrocortisone INJ 100 MG/2ML 2 ML VIAL IV SCH (19:13)
[2021-12-26] MEDS ORDERED: Dextrose 50% Syringe 50 ml 25 GM/50 ML SYRINGE IV PUSH PRN (19:13)
[2021-12-26] MEDS ORDERED: Digoxin IV 0.5 MG/2 ML AMP (0.25 MG/ML) IV SLOW PU ONE (20:31)
[2021-12-26] MEDS ORDERED: NS 0.9% 1000 ml BAG 1,000 ML IV ONE (20:33)
[2021-12-26] MEDS: NS 0.9% 1000 ml BAG 1,000 ML IV SCH (21:30)
[2021-12-26] MEDS ORDERED: Metoprolol Tartrate 5 mg VIAL 5 ml VIAL (1 mg/ml) IV ONE ×2 (21:35→21:58)
[2021-12-26] MEDS ORDERED: ZOSYN 3.375 GM per EXTENDED INFUSION IV ONE (23:00)
[2021-12-26] MEDS: PHENYLEPHRINE DRIP IVPREMIX 50 MG/250 ML BAG IV SCH (23:44)
[2021-12-27] MEDS: Hydrocortisone INJ 100 MG/2ML 2 ML VIAL IV SCH ×3 (02:34→18:52)
[2021-12-27 06:38] LABS: Calcium 7.8 mg/dL (8.6-10.3); Magnesium 1.5 mg/dL (1.9-2.7); Potassium 3.8 mmol/L (3.5-5.0)
[2021-12-27] MEDS ORDERED: ZOSYN 3.375 GM per EXTENDED INFUSION IV ONE (08:00)
[2021-12-27] MEDS ORDERED: Senna/Docusate 8.6/50 mg (NF) TAB PO SCH (09:00)
[2021-12-27] MEDS: Senna TAB 8.6 mg TAB PO SCH (09:16)
[2021-12-27] MEDS: Aspirin EC 81 mg TAB.EC (enteric coated) PO SCH (09:17)
[2021-12-27] MEDS: NS 0.9% 1000 ml BAG 1,000 ML IV SCH (11:24)
[2021-12-27] MEDS: PHENYLEPHRINE DRIP IVPREMIX 50 MG/250 ML BAG IV SCH (16:14)
[2021-12-27] MEDS ORDERED: ZOSYN 3.375 GM Q8H per EXTENDED INFUSION IV ONE (17:00)
[2021-12-27] MEDS ORDERED: Digoxin IV 0.5 MG/2 ML AMP (0.25 MG/ML) IV SLOW PU ONE (19:16)
[2021-12-27] MEDS ORDERED: Magnesium Sulfate IV 3 GM in NS 0.9% 100 ml BAG 100 ML IVPB ONE (22:52)
[2021-12-27] MEDS ORDERED: Magnesium Sulfate 2 GM IV (Premix) IVPB ONE (23:00)
[2021-12-27 23:12] LABS: Hematocrit 30 % (42-52); Mean Corpuscular HGB Conc 31 g/dL (31-36); Mean Corpuscular Hemoglobin 24 pg (27-31); Mean Corpuscular Volume 77 fL (80-94); Mean Platelet Volume 6.6 fL (7.4-10.4); Platelet Count 431 10^3/uL (150-450); Red Blood Count 3.83 10^6 /uL (4.18-5.48); Red Cell Distribution Width 20 % (10-15); White Blood Count 49.8 10^3/uL (3.5-10.8)
[2021-12-27 23:34] LABS: Microcytosis 1+
[2021-12-27 23:35] LABS: Anisocytosis 1+; Toxic Granulation 1+
[2021-12-27 23:36] LABS: ABS Basophils 0.5 10^3/ul (0-0.2); ABS Lymphocytes 0.3 10^3/ul (1.0-4.8); ABS Monocytes 1.1 10^3/ul (0-0.8); Lymphocyte % 0.6 %
[2021-12-27 23:54] LABS: Albumin 2.4 g/dL (3.2-5.2); Calcium 7.6 mg/dL (8.6-10.3); Globulin 2.3 g/dL (2-4); Magnesium 1.5 mg/dL (1.9-2.7); Potassium 3.7 mmol/L (3.5-5.0); Total Bilirubin 0.3 mg/dL (0.2-1.0); Total Protein 4.7 g/dL (6.4-8.9); eGFR CKD-EPI 107.5 (>60)
[2021-12-28] MEDS: Hydrocortisone INJ 100 MG/2ML 2 ML VIAL IV SCH ×3 (02:29→17:33)
[2021-12-28] MEDS ORDERED: ZOSYN 3.375 GM per EXTENDED INFUSION IV ONE (03:00)
[2021-12-28] MEDS ORDERED: Magnesium Sulfate IV 3 GM in NS 0.9% 100 ml BAG 100 ML IVPB ONE (03:43)
[2021-12-28] MEDS ORDERED: Magnesium Sulfate 2 GM IV (Premix) IVPB ONE (04:00)
[2021-12-28] MEDS ORDERED: Magnesium Sulfate 1 GM IV 1 GM/100 ML BAG IV ONE ×2 (05:00)
[2021-12-28 06:36] LABS: Hematocrit 27 % (42-52); Hemoglobin 8.3 g/dL (14.0-18.0); Mean Corpuscular HGB Conc 31 g/dL (31-36); Mean Corpuscular Hemoglobin 24 pg (27-31); Mean Corpuscular Volume 78 fL (80-94); Mean Platelet Volume 6.8 fL (7.4-10.4); Platelet Count 385 10^3/uL (150-450); Red Blood Count 3.42 10^6 /uL (4.18-5.48); Red Cell Distribution Width 21 % (10-15); White Blood Count 39.2 10^3/uL (3.5-10.8)
[2021-12-28 06:52] LABS: Albumin 2.2 g/dL (3.2-5.2); Calcium 7.6 mg/dL (8.6-10.3); Globulin 2.2 g/dL (2-4); Phosphorus 2.5 mg/dL (2.5-5.0); Potassium 3.4 mmol/L (3.5-5.0); Total Bilirubin 0.3 mg/dL (0.2-1.0); Total Protein 4.4 g/dL (6.4-8.9); eGFR CKD-EPI 111.4 (>60)
[2021-12-28] MEDS: Aspirin EC 81 mg TAB.EC (enteric coated) PO SCH (09:10)
[2021-12-28] MEDS: Senna TAB 8.6 mg TAB PO SCH (09:11)
[2021-12-28] MEDS ORDERED: Potassium Chlor 10 meq TAB PO ONE (09:47)
[2021-12-28] MEDS ORDERED: Potassium Chlor 20 meq TAB.ER PO ONE (10:30)
[2021-12-28] MEDS ORDERED: ZOSYN 3.375 GM Q8H per EXTENDED INFUSION IV ONE (11:00)
[2021-12-28] MEDS: ZOSYN 3.375 GM Q8H per EXTENDED INFUSION IV SCH (20:21)
[2021-12-28] MEDS: Mometasone/Formoter 200/5 MDI INH SCH (20:52)
[2021-12-29] MEDS: Linezolid 600 MG IVPREMIX(*) 600 MG/300 ML BAG IVPB SCH ×2 (01:04→12:18)
[2021-12-29] MEDS: Hydrocortisone INJ 100 MG/2ML 2 ML VIAL IV SCH ×3 (03:46→22:43)
[2021-12-29] MEDS: ZOSYN 3.375 GM Q8H per EXTENDED INFUSION IV SCH ×3 (03:48→22:48)
[2021-12-29] MEDS: Mometasone/Formoter 200/5 MDI INH SCH ×3 (07:49→20:37)
[2021-12-29] MEDS: Aspirin EC 81 mg TAB.EC (enteric coated) PO SCH (09:40)
[2021-12-29] MEDS: Senna TAB 8.6 mg TAB PO SCH (09:41)
[2021-12-29 12:05] LABS: Hematocrit 29 % (42-52); Hemoglobin 8.6 g/dL (14.0-18.0); Mean Corpuscular HGB Conc 30 g/dL (31-36); Mean Corpuscular Hemoglobin 23 pg (27-31); Mean Corpuscular Volume 77 fL (80-94); Mean Platelet Volume 6.5 fL (7.4-10.4); Platelet Count 392 10^3/uL (150-450); Red Cell Distribution Width 21 % (10-15); White Blood Count 32.4 10^3/uL (3.5-10.8)
[2021-12-29 12:19] LABS: ABS Lymphocytes 0.4 10^3/ul (1.0-4.8); Lymphocyte % 1.2 %
[2021-12-29 12:23] LABS: Albumin 2.6 g/dL (3.2-5.2); Calcium 7.9 mg/dL (8.6-10.3); Globulin 2.7 g/dL (2-4); Magnesium 1.7 mg/dL (1.9-2.7); Total Bilirubin 0.3 mg/dL (0.2-1.0); Total Protein 5.3 g/dL (6.4-8.9); eGFR CKD-EPI 109.7 (>60)
[2021-12-29] MEDS ORDERED: Magnesium Sulfate IV 3 GM in NS 0.9% 100 ml BAG 100 ML IVPB ONE (13:21)
[2021-12-29] MEDS ORDERED: Magnesium Sulfate 2 GM IV (Premix) IVPB ONE (14:30)
[2021-12-29] MEDS ORDERED: Magnesium Sulfate 1 GM IV 1 GM/100 ML BAG IV ONE (15:30)
[2021-12-29] MEDS: Iron Sucrose 200 MG in NS 0.9% 100 ml BAG 100 ML IVPB SCH (16:08)
[2021-12-30] MEDS: Linezolid 600 MG IVPREMIX(*) 600 MG/300 ML BAG IVPB SCH
[2021-12-30] MEDS: Hydrocortisone INJ 100 MG/2ML 2 ML VIAL IV SCH ×3 (03:08→22:18)
[2021-12-30] MEDS: ZOSYN 3.375 GM Q8H per EXTENDED INFUSION IV SCH ×3 (03:09→20:21)
[2021-12-30 07:05] LABS: Hematocrit 29 % (42-52); Hemoglobin 9.1 g/dL (14.0-18.0); Mean Corpuscular HGB Conc 31 g/dL (31-36); Mean Corpuscular Hemoglobin 24 pg (27-31); Mean Corpuscular Volume 78 fL (80-94); Mean Platelet Volume 6.6 fL (7.4-10.4); Platelet Count 404 10^3/uL (150-450); Red Blood Count 3.73 10^6 /uL (4.18-5.48); Red Cell Distribution Width 21 % (10-15); White Blood Count 34.9 10^3/uL (3.5-10.8)
[2021-12-30 07:13] LABS: ABS Lymphocytes 0.3 10^3/ul (1.0-4.8); ABS Monocytes 0.8 10^3/ul (0-0.8); ABS Neutrophils 33.8 10^3/ul (1.5-7.7); Lymphocyte % 0.9 %
[2021-12-30 07:14] LABS: Calcium 7.8 mg/dL (8.6-10.3); Magnesium 1.8 mg/dL (1.9-2.7); Potassium 2.8 mmol/L (3.5-5.0); eGFR CKD-EPI 112.1 (>60)
[2021-12-30] MEDS ORDERED: Magnesium Sulfate 2 gm BAG 2 GM/50 ML BAG IVPB ONE ×2 (07:16→19:50)
[2021-12-30] MEDS ORDERED: KCL 20 MEQ/100 ML IVPREMIX 20 MEQ/100 ML BAG IV SCH (08:00)
[2021-12-30] MEDS: Mometasone/Formoter 200/5 MDI INH SCH ×2 (08:31→20:51)
[2021-12-30] MEDS: Iron Sucrose 200 MG in NS 0.9% 100 ml BAG 100 ML IVPB SCH (08:56)
[2021-12-30] MEDS ORDERED: Potassium Chloride IV 40 MEQ in Lactated Ringers 1000 ml BAG 1,000 ML IVPB SCH (09:00)
[2021-12-30] MEDS: Aspirin EC 81 mg TAB.EC (enteric coated) PO SCH (11:20)
[2021-12-30] MEDS: Senna TAB 8.6 mg TAB PO SCH (11:21)
[2021-12-30] MEDS ORDERED: Dexamethasone IV 4 MG/ML VIAL 1 ml VIAL ONE (12:11)
[2021-12-30] MEDS ORDERED: Propofol 10 MG/ML 20 ML BTL ONE (12:11)
[2021-12-30] MEDS ORDERED: Ondansetron 4 mg VIAL 2 MG/ML 2 ml VIAL ONE (12:11)
[2021-12-30] MEDS ORDERED: Rocuronium 50 mg VIAL 10 mg/ml 5 ml VIAL (50 mg) ONE (12:14)
[2021-12-30] MEDS ORDERED: Benzocaine/Butamben/Tetracain (CETACAINE - SINGLE USE) 5 gm TOPICAL ONE (12:37)
[2021-12-30] MEDS ORDERED: fentaNYL 100 mcg/2 ml 50 MCG/ML VIAL ONE (13:18)
[2021-12-30] MEDS ORDERED: Acetylcysteine INH SOL (RT) 200 MG/ML 4 ML VIAL INH ONE (14:00)
[2021-12-30] MEDS ORDERED: Albuterol 2.5mg/3 ml (0.083%) NEB.SOLN INH ONE (14:33)
[2021-12-30] MEDS: Albuterol/Ipratropium NEB.SOL (2.5/0.5 MG) 3 ML NEB.SOLN INH PRN (14:41)
[2021-12-30] MEDS ORDERED: Ondansetron 4 mg VIAL 2 MG/ML 2 ml VIAL IV PRN (16:32)
[2021-12-30] MEDS ORDERED: Naloxone 0.4 mg VIAL 0.4 mg/ml 1 ml VIAL IV PRN (16:32)
[2021-12-30] MEDS ORDERED: fentaNYL 100 mcg/2 ml 50 MCG/ML VIAL IV PRN (16:32)
[2021-12-30] MEDS ORDERED: Potassium Chlor 20 meq TAB.ER PO ONE (17:48)
[2021-12-30 18:57] LABS: Calcium 7.8 mg/dL (8.6-10.3); eGFR CKD-EPI 105.1 (>60)
[2021-12-30 19:14] LABS: Potassium 2.6 mmol/L (3.5-5.0)
[2021-12-30] MEDS: KCL 20 MEQ/100 ML IVPREMIX 20 MEQ/100 ML BAG IV SCH ×2 (20:22→22:45)
[2021-12-30] MEDS: Potassium Chlor 20 meq TAB.ER PO SCH (20:25)
[2021-12-30 21:09] LABS: Magnesium 1.6 mg/dL (1.9-2.7)
[2021-12-31] MEDS: Potassium Chlor 20 meq TAB.ER PO SCH (00:33)
[2021-12-31] MEDS: ZOSYN 3.375 GM Q8H per EXTENDED INFUSION IV SCH ×3 (05:08→21:07)
[2021-12-31 05:53] LABS: Calcium 7.7 mg/dL (8.6-10.3); Magnesium 1.8 mg/dL (1.9-2.7); Potassium 3.7 mmol/L (3.5-5.0)
[2021-12-31] MEDS ORDERED: Magnesium Sulfate IV 3 GM in NS 0.9% 100 ml BAG 100 ML IVPB ONE (07:19)
[2021-12-31] MEDS ORDERED: Magnesium Sulfate 2 GM IV (Premix) IVPB ONE (08:00)
[2021-12-31] MEDS ORDERED: Magnesium Sulfate 1 GM IV 1 GM/100 ML BAG IV ONE (08:00)
[2021-12-31] MEDS: Mometasone/Formoter 200/5 MDI INH SCH ×2 (08:47→19:32)
[2021-12-31] MEDS: Aspirin EC 81 mg TAB.EC (enteric coated) PO SCH (09:29)
[2021-12-31] MEDS: Senna TAB 8.6 mg TAB PO SCH (09:30)
[2021-12-31] MEDS: Iron Sucrose 200 MG in NS 0.9% 100 ml BAG 100 ML IVPB SCH (09:32)
[2021-12-31] MEDS: Hydrocortisone INJ 100 MG/2ML 2 ML VIAL IV SCH ×2 (09:32→21:07)
[2021-12-31 11:58] LABS: Hematocrit 29 % (42-52); Hemoglobin 8.9 g/dL (14.0-18.0); Mean Corpuscular HGB Conc 31 g/dL (31-36); Mean Corpuscular Hemoglobin 24 pg (27-31); Mean Corpuscular Volume 78 fL (80-94); Mean Platelet Volume 6.6 fL (7.4-10.4); Platelet Count 391 10^3/uL (150-450); Red Blood Count 3.71 10^6 /uL (4.18-5.48); Red Cell Distribution Width 21 % (10-15); White Blood Count 40.6 10^3/uL (3.5-10.8)
[2022-01-01] MEDS: ZOSYN 3.375 GM Q8H per EXTENDED INFUSION IV SCH ×2 (03:32→12:33)
[2022-01-01 05:04] LABS: Hematocrit 31 % (42-52); Hemoglobin 9.2 g/dL (14.0-18.0); Mean Corpuscular HGB Conc 29 g/dL (31-36); Mean Corpuscular Hemoglobin 23 pg (27-31); Mean Corpuscular Volume 77 fL (80-94); Mean Platelet Volume 6.6 fL (7.4-10.4); Platelet Count 406 10^3/uL (150-450); Red Blood Count 4.06 10^6 /uL (4.18-5.48); Red Cell Distribution Width 21 % (10-15); White Blood Count 36.8 10^3/uL (3.5-10.8)
[2022-01-01 05:21] LABS: Calcium 7.8 mg/dL (8.6-10.3); Magnesium 1.5 mg/dL (1.9-2.7); Potassium 2.8 mmol/L (3.5-5.0)
[2022-01-01] MEDS ORDERED: Magnesium Sulf 4 GM/100 ML IV 4,000 MG/100 ML BAG IVPB ONE (07:06)
[2022-01-01] MEDS ORDERED: Potassium Chlor 20 meq TAB.ER PO ONE ×2 (07:07→17:33)
[2022-01-01] MEDS: Mometasone/Formoter 200/5 MDI INH SCH ×2 (08:05→19:49)
[2022-01-01] MEDS: Hydrocortisone INJ 100 MG/2ML 2 ML VIAL IV SCH (08:40)
[2022-01-01] MEDS: Senna TAB 8.6 mg TAB PO SCH (08:41)
[2022-01-01] MEDS: Aspirin EC 81 mg TAB.EC (enteric coated) PO SCH (08:41)
[2022-01-01] MEDS: Iron Sucrose 200 MG in NS 0.9% 100 ml BAG 100 ML IVPB SCH (11:51)
[2022-01-01] MEDS: Amoxicillin/Clavul 875/125 TAB (Augmentin 875 tab) PO SCH ×2 (14:20→20:30)
[2022-01-01] MEDS: NS 0.9% w/ 40 Meq KCL 1000 ML 1,000 ML IV SCH (16:41)
[2022-01-01 18:43] LABS: Calcium 7.4 mg/dL (8.6-10.3); Potassium 3.1 mmol/L (3.5-5.0); eGFR CKD-EPI 118.3 (>60)
[2022-01-01 19:49] LABS: Magnesium 1.7 mg/dL (1.9-2.7)
[2022-01-01] MEDS ORDERED: KCL 20 MEQ/100 ML IVPREMIX 20 MEQ/100 ML BAG IV SCH (20:00)
[2022-01-01] MEDS: Potassium Chlor 20 meq TAB.ER PO SCH (20:39)
[2022-01-02] MEDS: Potassium Chlor 20 meq TAB.ER PO SCH (01:07)
[2022-01-02] MEDS: NS 0.9% w/ 40 Meq KCL 1000 ML 1,000 ML IV SCH (01:24)
[2022-01-02] MEDS: Amoxicillin/Clavul 875/125 TAB (Augmentin 875 tab) PO SCH ×3 (05:06→21:24)
[2022-01-02 06:30] LABS: Calcium 8.2 mg/dL (8.6-10.3); Magnesium 1.5 mg/dL (1.9-2.7); Potassium 4.5 mmol/L (3.5-5.0); eGFR CKD-EPI 122.4 (>60)
[2022-01-02] MEDS ORDERED: Magnesium Sulf 4 GM/100 ML IV 4,000 MG/100 ML BAG IVPB ONE (07:06)
[2022-01-02] MEDS: Aspirin EC 81 mg TAB.EC (enteric coated) PO SCH (08:27)
[2022-01-02] MEDS: Iron Sucrose 200 MG in NS 0.9% 100 ml BAG 100 ML IVPB SCH (08:29)
[2022-01-02] MEDS: Senna TAB 8.6 mg TAB PO SCH (08:30)
[2022-01-02] MEDS: Mometasone/Formoter 200/5 MDI INH SCH (08:45)
[2022-01-02] MEDS ORDERED: Hydrocortisone INJ 100 MG/2ML 2 ML VIAL IV SCH (09:00)
[2022-01-02] MEDS: Albuterol/Ipratropium NEB.SOL (2.5/0.5 MG) 3 ML NEB.SOLN INH PRN (14:11)
[2022-01-02] MEDS ORDERED: Lactated Ringers 500 ml BAG 500 ML IV ONE (16:58)
[2022-01-03] MEDS ORDERED: Digoxin IV 0.5 MG/2 ML AMP (0.25 MG/ML) IV SLOW PU ONE (04:10)
[2022-01-03] MEDS ORDERED: NS 0.9% 500 ml BAG 500 ML IV ONE (04:11)
[2022-01-03] MEDS ORDERED: Lactated Ringers 500 ml BAG 500 ML IV SCH (05:00)
[2022-01-03] MEDS: Amoxicillin/Clavul 875/125 TAB (Augmentin 875 tab) PO SCH (05:26)
[2022-01-03 05:43] LABS: Hematocrit 27 % (42-52); Hemoglobin 8.1 g/dL (14.0-18.0); Mean Corpuscular HGB Conc 30 g/dL (31-36); Mean Corpuscular Hemoglobin 24 pg (27-31); Mean Corpuscular Volume 79 fL (80-94); Mean Platelet Volume 6.7 fL (7.4-10.4); Platelet Count 348 10^3/uL (150-450); Red Blood Count 3.39 10^6 /uL (4.18-5.48); Red Cell Distribution Width 21 % (10-15); White Blood Count 36.3 10^3/uL (3.5-10.8)
[2022-01-03] MEDS ORDERED: Metoprolol Tartrate 5 mg VIAL 5 ml VIAL (1 mg/ml) IV ONE (06:05)
[2022-01-03 06:20] LABS: Magnesium 1.5 mg/dL (1.9-2.7); Potassium 4.3 mmol/L (3.5-5.0)
[2022-01-03] MEDS ORDERED: .Amiodarone 24HR ONLY IV Protocol Order Note IV ONE (06:29)
[2022-01-03] MEDS ORDERED: Amiodarone 150 mg IVPREMIX 150 MG/100 ML BAG IV ONE (06:29)
[2022-01-03] MEDS: Mometasone/Formoter 200/5 MDI INH SCH ×3 (06:34→19:02)
[2022-01-03] MEDS ORDERED: Amiodarone 360 MG IVPREMIX 360 MG/200 ML BAG IV SCH ×2 (06:40→12:40)
[2022-01-03] MEDS: Magnesium Sulfate 2 gm BAG 2 GM/50 ML BAG IVPB ONE ×2 (06:56→07:41)
[2022-01-03] MEDS ORDERED: Dextrose 50% Syringe 50 ml 25 GM/50 ML SYRINGE IV PUSH PRN (07:11)
[2022-01-03] MEDS ORDERED: PHENYLEPHRINE DRIP IVPREMIX 50 MG/250 ML BAG IV SCH (07:30)
[2022-01-03] MEDS ORDERED: Acetaminophen IV 1 GM/100ML 100 ML IV PRN (07:31)
[2022-01-03] MEDS ORDERED: Piperacillin/Tazobac ADVAN 3.375 GM in NS 0.9% 100 ml BAG 100 ML IV ONE (07:31)
[2022-01-03] MEDS ORDERED: Vancomycin 1,000 MG in NS 0.9% 250 ml 250 ML IVPB ONE (07:31)
[2022-01-03] MEDS ORDERED: Lactated Ringers 1000 ml BAG 1,000 ML IV ONE (07:32)
[2022-01-03 07:38] LABS: PCO2 Arterial 49 mmHg (35-45); PO2 Arterial 98 mmHg (80-100)
[2022-01-03] MEDS ORDERED: Zosyn per Pharmacy NOTE FOLLOW UP SCH (08:00)
[2022-01-03] MEDS ORDERED: Vancomycin per Pharmacy 1 EA NOTE FOLLOW UP SCH (08:00)
[2022-01-03] MEDS ORDERED: Norepinephrine 16MCG/ML BAGD5W 4,000 MCG/250 ML BAG IV SCH (08:00)
[2022-01-03] MEDS: Hydrocortisone INJ 100 MG/2ML 2 ML VIAL IV SCH ×3 (09:10→23:53)
[2022-01-03] MEDS: Aspirin EC 81 mg TAB.EC (enteric coated) PO SCH (09:11)
[2022-01-03] MEDS: Senna TAB 8.6 mg TAB PO SCH (09:11)
[2022-01-03] MEDS ORDERED: ZOSYN 3.375 GM Q8H per EXTENDED INFUSION IV SCH (12:00)
[2022-01-03] MEDS: Albuterol/Ipratropium NEB.SOL (2.5/0.5 MG) 3 ML NEB.SOLN INH SCH ×4 (12:39→23:10)
[2022-01-03] MEDS: Amiodarone 400 mg TAB PO SCH ×4 (13:41→20:45)
[2022-01-03] MEDS: ZOSYN 3.375 GM Q8H per EXTENDED INFUSION IV SCH ×2 (14:59→23:53)
[2022-01-03] MEDS: Vancomycin 1000 MG in NS 0.9% 250 ML IVPB SCH (20:11)
[2022-01-04] MEDS: Albuterol/Ipratropium NEB.SOL (2.5/0.5 MG) 3 ML NEB.SOLN INH SCH ×4 (02:35→20:11)
[2022-01-04] MEDS: Vancomycin 1000 MG in NS 0.9% 250 ML IVPB SCH ×2 (05:47→17:29)
[2022-01-04 05:56] LABS: Hematocrit 26 % (42-52); Mean Corpuscular HGB Conc 31 g/dL (31-36); Mean Corpuscular Hemoglobin 25 pg (27-31); Mean Corpuscular Volume 79 fL (80-94); Mean Platelet Volume 6.9 fL (7.4-10.4); Platelet Count 343 10^3/uL (150-450); Red Blood Count 3.26 10^6 /uL (4.18-5.48); Red Cell Distribution Width 22 % (10-15); White Blood Count 55.7 10^3/uL (3.5-10.8)
[2022-01-04 06:31] LABS: ABS Lymphocytes 0.4 10^3/ul (1.0-4.8); ABS Monocytes 1.3 10^3/ul (0-0.8); Lymphocyte % 0.6 %
[2022-01-04 06:32] LABS: Calcium 7.7 mg/dL (8.6-10.3); Magnesium 1.5 mg/dL (1.9-2.7); Potassium 3.5 mmol/L (3.5-5.0); eGFR CKD-EPI 110.8 (>60)
[2022-01-04] MEDS: Mometasone/Formoter 200/5 MDI INH SCH ×2 (07:05→20:12)
[2022-01-04] MEDS ORDERED: Magnesium Sulfate 2 gm BAG 2 GM/50 ML BAG IV ONE (08:00)
[2022-01-04] MEDS: Aspirin EC 81 mg TAB.EC (enteric coated) PO SCH (08:59)
[2022-01-04] MEDS: Amiodarone 400 mg TAB PO SCH ×2 (08:59→20:27)
[2022-01-04] MEDS: Hydrocortisone INJ 100 MG/2ML 2 ML VIAL IV SCH ×2 (09:00→20:28)
[2022-01-04] MEDS ORDERED: Magnesium Sulfate 1 GM IV 1 GM/100 ML BAG IV ONE (09:00)
[2022-01-04] MEDS: Senna TAB 8.6 mg TAB PO SCH (09:00)
[2022-01-04] MEDS: ZOSYN 3.375 GM Q8H per EXTENDED INFUSION IV SCH ×2 (11:02→20:27)
[2022-01-04] MEDS ORDERED: Potassium Chlor 20 meq TAB.ER PO ONE (12:49)
[2022-01-04] MEDS ORDERED: Magnesium Sulfate 2 gm BAG 2 GM/50 ML BAG IVPB ONE (12:50)
[2022-01-04] MEDS ORDERED: Furosemide 40 mg/4 ml IV VIAL IV SLOW PU ONE (17:19)
[2022-01-05] MEDS: Albuterol/Ipratropium NEB.SOL (2.5/0.5 MG) 3 ML NEB.SOLN INH SCH ×3 (01:43→13:56)
[2022-01-05] MEDS: ZOSYN 3.375 GM Q8H per EXTENDED INFUSION IV SCH ×3 (03:30→18:07)
[2022-01-05] MEDS ORDERED: Vancomycin Trough Check NOTE FOLLOW UP ONE (05:30)
[2022-01-05 05:50] LABS: Albumin 2.3 g/dL (3.2-5.2); Calcium 7.5 mg/dL (8.6-10.3); Globulin 2.2 g/dL (2-4); Magnesium 1.8 mg/dL (1.9-2.7); Potassium 3.2 mmol/L (3.5-5.0); Total Bilirubin 0.3 mg/dL (0.2-1.0); Total Protein 4.5 g/dL (6.4-8.9); Vancomycin Trough 10.9 mcg/mL; eGFR CKD-EPI 111.4 (>60)
[2022-01-05] MEDS: Vancomycin 1000 MG in NS 0.9% 250 ML IVPB SCH (06:09)
[2022-01-05] MEDS ORDERED: Magnesium Sulfate IV 3 GM in NS 0.9% 100 ml BAG 100 ML IVPB ONE (07:14)
[2022-01-05] MEDS ORDERED: Potassium Chlor 20 meq TAB.ER PO ONE ×2 (07:15→13:00)
[2022-01-05] MEDS ORDERED: Magnesium Sulfate 2 GM IV (Premix) IVPB ONE (07:30)
[2022-01-05] MEDS: Mometasone/Formoter 200/5 MDI INH SCH ×2 (07:39→20:38)
[2022-01-05] MEDS: Amiodarone 400 mg TAB PO SCH ×2 (08:25→19:45)
[2022-01-05] MEDS: Senna TAB 8.6 mg TAB PO SCH ×2 (08:26→08:52)
[2022-01-05] MEDS: Aspirin EC 81 mg TAB.EC (enteric coated) PO SCH (08:27)
[2022-01-05 08:28] LABS: Hematocrit 27 % (42-52); Hemoglobin 8.3 g/dL (14.0-18.0); Mean Corpuscular HGB Conc 31 g/dL (31-36); Mean Corpuscular Hemoglobin 24 pg (27-31); Mean Corpuscular Volume 79 fL (80-94); Platelet Count 337 10^3/uL (150-450); Red Blood Count 3.42 10^6 /uL (4.18-5.48); Red Cell Distribution Width 23 % (10-15); White Blood Count 42.8 10^3/uL (3.5-10.8)
[2022-01-05] MEDS: Hydrocortisone INJ 100 MG/2ML 2 ML VIAL IV SCH ×2 (08:28→19:45)
[2022-01-05] MEDS ORDERED: Magnesium Sulfate 1 GM IV 1 GM/100 ML BAG IV ONE (08:30)
[2022-01-05 09:14] LABS: ABS Lymphocytes 0.7 10^3/ul (1.0-4.8); ABS Monocytes 1.3 10^3/ul (0-0.8); ABS Neutrophils 40.7 10^3/ul (1.5-7.7); Lymphocyte % 1.7 %
[2022-01-05] MEDS ORDERED: Furosemide 40 mg/4 ml IV VIAL IV SLOW PU ONE (09:17)
[2022-01-05] MEDS ORDERED: Rasburicase 1.5 MG VIAL(NF) IVPB ONE (10:18)
[2022-01-05] MEDS ORDERED: NS 0.9% 100 ml BAG 100 ML ONE ×2 (10:32→19:44)
[2022-01-05] MEDS ORDERED: Albuterol/Ipratropium NEB.SOL (2.5/0.5 MG) 3 ML NEB.SOLN INH PRN (13:55)
[2022-01-06] MEDS: ZOSYN 3.375 GM Q8H per EXTENDED INFUSION IV SCH ×3 (01:17→17:14)
[2022-01-06] MEDS ORDERED: NS 0.9% 100 ml BAG 100 ML ONE (02:04)
[2022-01-06 05:04] LABS: Hematocrit 27 % (42-52); Hemoglobin 8.3 g/dL (14.0-18.0); Mean Corpuscular HGB Conc 31 g/dL (31-36); Mean Corpuscular Hemoglobin 24 pg (27-31); Mean Corpuscular Volume 79 fL (80-94); Mean Platelet Volume 6.9 fL (7.4-10.4); Platelet Count 344 10^3/uL (150-450); Red Blood Count 3.41 10^6 /uL (4.18-5.48); Red Cell Distribution Width 23 % (10-15); White Blood Count 41.9 10^3/uL (3.5-10.8)
[2022-01-06 05:52] LABS: Albumin 2.3 g/dL (3.2-5.2); Calcium 7.6 mg/dL (8.6-10.3); Globulin 2.3 g/dL (2-4); Potassium 3.6 mmol/L (3.5-5.0); Total Bilirubin 0.3 mg/dL (0.2-1.0); Total Protein 4.6 g/dL (6.4-8.9); eGFR CKD-EPI 113.3 (>60)
[2022-01-06 07:16] LABS: ABS Basophils 0.5 10^3/ul (0-0.2); ABS Lymphocytes 0.4 10^3/ul (1.0-4.8); ABS Monocytes 1.3 10^3/ul (0-0.8); ABS Neutrophils 39.7 10^3/ul (1.5-7.7); Anisocytosis 1+
[2022-01-06] MEDS: Mometasone/Formoter 200/5 MDI INH SCH ×2 (07:42→21:29)
[2022-01-06] MEDS ORDERED: Furosemide 40 mg/4 ml IV VIAL IV ONE (08:28)
[2022-01-06] MEDS: Amiodarone 400 mg TAB PO SCH ×2 (08:43→22:20)
[2022-01-06] MEDS: Aspirin EC 81 mg TAB.EC (enteric coated) PO SCH (08:43)
[2022-01-06] MEDS ORDERED: Potassium Chlor 20 meq TAB.ER PO ONE (09:43)
[2022-01-06] MEDS: Senna TAB 8.6 mg TAB PO SCH (09:53)
[2022-01-06] MEDS: Hydrocortisone INJ 100 MG/2ML 2 ML VIAL IV SCH (10:30)
[2022-01-06] MEDS ORDERED: Hydrocortisone INJ 100 MG VIAL IV SCH (11:00)
[2022-01-06] MEDS: Hydrocortisone INJ 100 MG VIAL IV SCH (23:13)
[2022-01-07] MEDS: ZOSYN 3.375 GM Q8H per EXTENDED INFUSION IV SCH ×3 (01:59→17:08)
[2022-01-07 05:42] LABS: Hematocrit 28 % (42-52); Hemoglobin 8.7 g/dL (14.0-18.0); Mean Corpuscular HGB Conc 31 g/dL (31-36); Mean Corpuscular Hemoglobin 24 pg (27-31); Mean Corpuscular Volume 79 fL (80-94); Mean Platelet Volume 6.8 fL (7.4-10.4); Platelet Count 344 10^3/uL (150-450); Red Blood Count 3.58 10^6 /uL (4.18-5.48); Red Cell Distribution Width 23 % (10-15); White Blood Count 43.6 10^3/uL (3.5-10.8)
[2022-01-07 06:07] LABS: C Reactive Protein 64.9 mg/L (<8.01); Calcium 7.8 mg/dL (8.6-10.3); Potassium 3.5 mmol/L (3.5-5.0); eGFR CKD-EPI 111.4 (>60)
[2022-01-07] MEDS: Mometasone/Formoter 200/5 MDI INH SCH ×2 (08:14→21:02)
[2022-01-07 08:43] LABS: Magnesium 1.5 mg/dL (1.9-2.7)
[2022-01-07 08:52] LABS: ABS Eosinophils 0.2 10^3/ul (0-0.6); ABS Lymphocytes 0.8 10^3/ul (1.0-4.8); ABS Monocytes 1.3 10^3/ul (0-0.8); ABS Neutrophils 41.3 10^3/ul (1.5-7.7); Eosinophil % 0.5 %; Lymphocyte % 1.8 %; RBC Morphology Normal (Normal)
[2022-01-07] MEDS: Senna TAB 8.6 mg TAB PO SCH ×2 (09:54→09:59)
[2022-01-07] MEDS: Aspirin EC 81 mg TAB.EC (enteric coated) PO SCH (09:55)
[2022-01-07] MEDS: Amiodarone 400 mg TAB PO SCH (09:57)
[2022-01-07] MEDS ORDERED: Albumin Human 25% 25 GM/100 ML BTL IV ONE (11:00)
[2022-01-07] MEDS ORDERED: Potassium Chlor 20 meq TAB.ER PO ONE (13:24)
[2022-01-07] MEDS: Hydrocortisone INJ 100 MG/2ML 2 ML VIAL IV SCH (13:30)
[2022-01-07] MEDS: Hydrocortisone INJ 100 MG VIAL IV SCH (13:38)
[2022-01-08] MEDS: Hydrocortisone INJ 100 MG/2ML 2 ML VIAL IV SCH ×2 (02:32→13:25)
[2022-01-08] MEDS: ZOSYN 3.375 GM Q8H per EXTENDED INFUSION IV SCH ×3 (02:33→18:09)
[2022-01-08 07:07] LABS: Hematocrit 25 % (42-52); Hemoglobin 8.1 g/dL (14.0-18.0); Mean Corpuscular HGB Conc 32 g/dL (31-36); Mean Corpuscular Hemoglobin 25 pg (27-31); Mean Corpuscular Volume 79 fL (80-94); Mean Platelet Volume 7.3 fL (7.4-10.4); Platelet Count 319 10^3/uL (150-450); Red Blood Count 3.21 10^6 /uL (4.18-5.48); Red Cell Distribution Width 23 % (10-15); White Blood Count 34.5 10^3/uL (3.5-10.8)
[2022-01-08 07:22] LABS: Calcium 7.9 mg/dL (8.6-10.3); Magnesium 1.5 mg/dL (1.9-2.7); Potassium 3.2 mmol/L (3.5-5.0); eGFR CKD-EPI 105.1 (>60)
[2022-01-08] MEDS ORDERED: Potassium Chlor 20 meq TAB.ER PO ONE (07:25)
[2022-01-08] MEDS: Mometasone/Formoter 200/5 MDI INH SCH ×2 (07:32→20:33)
[2022-01-08] MEDS: Aspirin EC 81 mg TAB.EC (enteric coated) PO SCH (07:52)
[2022-01-08] MEDS: Senna TAB 8.6 mg TAB PO SCH (07:56)
[2022-01-08] MEDS: Magnesium Sulfate 2 gm BAG 2 GM/50 ML BAG IVPB SCH (07:56)
[2022-01-08] MEDS ORDERED: Lactated Ringers 1000 ml BAG 1,000 ML IV SCH (08:00)
[2022-01-08] MEDS ORDERED: Albumin Human 25% 25 GM/100 ML BTL IV ONE (08:00)
[2022-01-08] MEDS ORDERED: Lactated Ringers 500 ml BAG 500 ML IV ONE (09:06)
[2022-01-09] MEDS: Magnesium Sulfate 2 gm BAG 2 GM/50 ML BAG IVPB SCH (01:04)
[2022-01-09] MEDS: ZOSYN 3.375 GM Q8H per EXTENDED INFUSION IV SCH ×3 (02:41→17:30)
[2022-01-09] MEDS: Hydrocortisone INJ 100 MG/2ML 2 ML VIAL IV SCH ×2 (02:41→15:08)
[2022-01-09 06:23] LABS: Hematocrit 26 % (42-52); Hemoglobin 7.8 g/dL (14.0-18.0); Mean Corpuscular HGB Conc 30 g/dL (31-36); Mean Corpuscular Hemoglobin 24 pg (27-31); Mean Corpuscular Volume 80 fL (80-94); Mean Platelet Volume 7.1 fL (7.4-10.4); Platelet Count 338 10^3/uL (150-450); Red Cell Distribution Width 24 % (10-15); White Blood Count 47.1 10^3/uL (3.5-10.8)
[2022-01-09 06:47] LABS: Albumin 2.6 g/dL (3.2-5.2); C Reactive Protein 160.07 mg/L (<8.01); Globulin 2.5 g/dL (2-4); Potassium 3.6 mmol/L (3.5-5.0); Total Bilirubin 0.5 mg/dL (0.2-1.0); Total Protein 5.1 g/dL (6.4-8.9); eGFR CKD-EPI 114.6 (>60)
[2022-01-09 07:55] LABS: ABS Basophils 0.2 10^3/ul (0-0.2); ABS Lymphocytes 0.3 10^3/ul (1.0-4.8); ABS Neutrophils 45.6 10^3/ul (1.5-7.7); Lymphocyte % 0.7 %
[2022-01-09] MEDS: Aspirin EC 81 mg TAB.EC (enteric coated) PO SCH (08:33)
[2022-01-09] MEDS: Mometasone/Formoter 200/5 MDI INH SCH ×2 (09:33→21:05)
[2022-01-09] MEDS: Senna TAB 8.6 mg TAB PO SCH (09:42)
[2022-01-10] MEDS: ZOSYN 3.375 GM Q8H per EXTENDED INFUSION IV SCH ×2 (02:05→09:45)
[2022-01-10] MEDS: Hydrocortisone INJ 100 MG/2ML 2 ML VIAL IV SCH ×2 (02:20→13:12)
[2022-01-10] MEDS: Mometasone/Formoter 200/5 MDI INH SCH ×2 (07:48→19:50)
[2022-01-10] MEDS: Senna TAB 8.6 mg TAB PO SCH (07:57)
[2022-01-10] MEDS: Aspirin EC 81 mg TAB.EC (enteric coated) PO SCH (07:57)
[2022-01-10] MEDS ORDERED: Furosemide 40 mg/4 ml IV VIAL IV SLOW PU ONE (10:30)
[2022-01-11] MEDS: Hydrocortisone INJ 100 MG/2ML 2 ML VIAL IV SCH (02:54)
[2022-01-11] MEDS: Mometasone/Formoter 200/5 MDI INH SCH ×2 (07:38→20:17)
[2022-01-11] MEDS: Aspirin EC 81 mg TAB.EC (enteric coated) PO SCH (08:05)
[2022-01-11] MEDS: Senna TAB 8.6 mg TAB PO SCH (08:06)
[2022-01-11] MEDS ORDERED: Furosemide 20 mg/2 ml IV VIAL IV ONE (13:28)
[2022-01-11 13:54] LABS: Urine Appearance Clear; Urine Bilirubin Negative (Negative); Urine Blood 2+ (Negative); Urine Color Yellow; Urine Glucose Negative (Negative); Urine Ketones Negative (Negative); Urine Nitrite Negative (Negative); Urine Protein Negative (Negative); Urine Specific Gravity 1.011 (1.002-1.030); Urine Urobilinogen Negative (Negative)
[2022-01-11 14:02] LABS: Urine Bacteria Absent (Absent); Urine Red Blood Cell 2+(6-10/hpf) (Absent); Urine White Blood Cell Trace(0-5/hpf) (Absent)
[2022-01-11 14:54] LABS: Hematocrit 28 % (42-52); Hemoglobin 8.5 g/dL (14.0-18.0); Mean Corpuscular HGB Conc 31 g/dL (31-36); Mean Corpuscular Hemoglobin 25 pg (27-31); Mean Corpuscular Volume 80 fL (80-94); Mean Platelet Volume 6.9 fL (7.4-10.4); Platelet Count 391 10^3/uL (150-450); Red Blood Count 3.45 10^6 /uL (4.18-5.48); Red Cell Distribution Width 23 % (10-15); White Blood Count 44.9 10^3/uL (3.5-10.8)
[2022-01-11 15:52] LABS: Albumin 2.7 g/dL (3.2-5.2); Albumin/Globulin Ratio 1.2 (1-3); Globulin 2.3 g/dL (2-4); Magnesium 1.3 mg/dL (1.9-2.7); Potassium 3.2 mmol/L (3.5-5.0); Total Bilirubin 0.3 mg/dL (0.2-1.0); eGFR CKD-EPI 116.8 (>60)
[2022-01-11] MEDS ORDERED: Magnesium Sulfate 2 gm BAG 2 GM/50 ML BAG IVPB ONE (16:11)
[2022-01-11] MEDS ORDERED: Potassium Chlor 20 meq TAB.ER PO ONE ×3 (16:11→20:00)
[2022-01-12 05:44] LABS: Hematocrit 29 % (42-52); Hemoglobin 8.8 g/dL (14.0-18.0); Mean Corpuscular HGB Conc 31 g/dL (31-36); Mean Corpuscular Hemoglobin 25 pg (27-31); Mean Corpuscular Volume 80 fL (80-94); Mean Platelet Volume 7.1 fL (7.4-10.4); Platelet Count 384 10^3/uL (150-450); Red Blood Count 3.56 10^6 /uL (4.18-5.48); Red Cell Distribution Width 24 % (10-15); White Blood Count 31.3 10^3/uL (3.5-10.8)
[2022-01-12 06:07] LABS: Calcium 8.2 mg/dL (8.6-10.3); Magnesium 1.6 mg/dL (1.9-2.7); Potassium 3.7 mmol/L (3.5-5.0); eGFR CKD-EPI 101.6 (>60)
[2022-01-12] MEDS ORDERED: Potassium Chlor 20 meq TAB.ER PO ONE (07:02)
[2022-01-12] MEDS ORDERED: Magnesium Sulfate 2 gm BAG 2 GM/50 ML BAG IVPB ONE (07:02)
[2022-01-12] MEDS: Hydrocortisone INJ 100 MG/2ML 2 ML VIAL IV SCH (07:37)
[2022-01-12] MEDS: Senna TAB 8.6 mg TAB PO SCH (07:41)
[2022-01-12] MEDS: Aspirin EC 81 mg TAB.EC (enteric coated) PO SCH (07:43)
[2022-01-12] MEDS: Mometasone/Formoter 200/5 MDI INH SCH ×2 (08:58→20:04)
[2022-01-12] MEDS ORDERED: Lactated Ringers 500 ml BAG 500 ML IV ONE (21:53)
[2022-01-13] MEDS ORDERED: LACTATED RINGERS 500 ML BAG IV ONE (03:40)
[2022-01-13 06:16] LABS: Hematocrit 26 % (42-52); Hemoglobin 8.2 g/dL (14.0-18.0); Mean Corpuscular HGB Conc 31 g/dL (31-36); Mean Corpuscular Hemoglobin 25 pg (27-31); Mean Corpuscular Volume 81 fL (80-94); Mean Platelet Volume 7.2 fL (7.4-10.4); Platelet Count 357 10^3/uL (150-450); Red Blood Count 3.21 10^6 /uL (4.18-5.48); Red Cell Distribution Width 24 % (10-15); White Blood Count 37.2 10^3/uL (3.5-10.8)
[2022-01-13 06:23] LABS: ABS Basophils 0.1 10^3/ul (0-0.2); ABS Eosinophils 0.3 10^3/ul (0-0.6); ABS Lymphocytes 1.3 10^3/ul (1.0-4.8); ABS Monocytes 1.6 10^3/ul (0-0.8); ABS Neutrophils 33.9 10^3/ul (1.5-7.7); Eosinophil % 0.7 %; Lymphocyte % 3.4 %
[2022-01-13 06:33] LABS: Calcium 8.2 mg/dL (8.6-10.3); Magnesium 1.7 mg/dL (1.9-2.7); Potassium 4.4 mmol/L (3.5-5.0); eGFR CKD-EPI 106.5 (>60)
[2022-01-13] MEDS ORDERED: Magnesium Sulfate 2 gm BAG 2 GM/50 ML BAG IVPB ONE (08:00)
[2022-01-13] MEDS: Mometasone/Formoter 200/5 MDI INH SCH ×2 (08:08→20:08)
[2022-01-13] MEDS: Hydrocortisone INJ 100 MG/2ML 2 ML VIAL IV SCH (08:20)
[2022-01-13] MEDS: Aspirin EC 81 mg TAB.EC (enteric coated) PO SCH (08:21)
[2022-01-13] MEDS: Senna TAB 8.6 mg TAB PO SCH (08:21)
[2022-01-13] MEDS ORDERED: Lactated Ringers 500 ml BAG 500 ML IV ONE (09:30)
[2022-01-13] MEDS ORDERED: Hydrocortisone INJ 100 MG/2ML 2 ML VIAL IV SCH (21:00)
[2022-01-14 06:03] LABS: Calcium 7.6 mg/dL (8.6-10.3); Magnesium 1.5 mg/dL (1.9-2.7); Potassium 4.1 mmol/L (3.5-5.0); eGFR CKD-EPI 114.6 (>60)
[2022-01-14] MEDS ORDERED: Magnesium Sulfate 2 gm BAG 2 GM/50 ML BAG IVPB ONE (06:44)
[2022-01-14] MEDS: Mometasone/Formoter 200/5 MDI INH SCH ×2 (07:30→19:51)
[2022-01-14] MEDS: Senna TAB 8.6 mg TAB PO SCH ×2 (09:24→09:53)
[2022-01-14] MEDS: Aspirin EC 81 mg TAB.EC (enteric coated) PO SCH (09:28)
[2022-01-14] MEDS ORDERED: Albumin Human 25% 25 GM/100 ML BTL IV ONE (10:00)
[2022-01-15 07:11] LABS: Potassium 4.6 mmol/L (3.5-5.0); eGFR CKD-EPI 107.5 (>60)
[2022-01-15 07:26] LABS: TSH Ultra Thyroid Stim Horm 2.61 mcIU/mL (0.34-5.60)
[2022-01-15 07:28] LABS: Free T4 1.16 ng/dL (0.61-1.12)
[2022-01-15 07:33] LABS: Prolactin 27.3 ng/mL (1.0-20.0)
[2022-01-15 07:41] LABS: Insulin 5.9 mcIU/mL (2.0-16.0)
[2022-01-15] MEDS: Mometasone/Formoter 200/5 MDI INH SCH ×2 (07:58→19:37)
[2022-01-15] MEDS ORDERED: Cosyntropin 0.001 MG in Sodium Chloride 0.9% 0.5 ML IV ONE ×2 (08:45→09:00)
[2022-01-15] MEDS: Aspirin EC 81 mg TAB.EC (enteric coated) PO SCH (09:36)
[2022-01-15] MEDS: Senna TAB 8.6 mg TAB PO SCH ×2 (09:36→09:43)
[2022-01-16] MEDS: Mometasone/Formoter 200/5 MDI INH SCH ×2 (07:47→20:16)
[2022-01-16] MEDS: Aspirin EC 81 mg TAB.EC (enteric coated) PO SCH (09:37)
[2022-01-16] MEDS: Senna TAB 8.6 mg TAB PO SCH (09:39)
[2022-01-16 15:37] LABS: Urine Appearance Clear; Urine Bilirubin Negative (Negative); Urine Blood 1+ (Negative); Urine Color Yellow; Urine Glucose Negative (Negative); Urine Ketones Negative (Negative); Urine Nitrite Negative (Negative); Urine Protein Negative (Negative); Urine Urobilinogen Negative (Negative)
[2022-01-16 15:42] LABS: Urine Bacteria Absent (Absent); Urine Red Blood Cell 1+(3-5/hpf) (Absent); Urine Squamous Epithelial Cell Present (Absent); Urine White Blood Cell Trace(0-5/hpf) (Absent)
[2022-01-17] MEDS: Aspirin EC 81 mg TAB.EC (enteric coated) PO SCH (07:52)
[2022-01-17] MEDS: Senna TAB 8.6 mg TAB PO SCH ×2 (07:57→21:46)
[2022-01-17] MEDS: Mometasone/Formoter 200/5 MDI INH SCH ×2 (08:48→21:44)
[2022-01-17 11:22] LABS: Albumin 2.4 g/dL (3.2-5.2); Calcium 7.9 mg/dL (8.6-10.3); Globulin 2.4 g/dL (2-4); Potassium 3.8 mmol/L (3.5-5.0); Total Bilirubin 0.2 mg/dL (0.2-1.0); Total Protein 4.8 g/dL (6.4-8.9); eGFR CKD-EPI 114.6 (>60)
[2022-01-17] MEDS: Polyethylene Glycol 3350 17 GM PACKET PO SCH (21:05)
[2022-01-18] MEDS: Mometasone/Formoter 200/5 MDI INH SCH (07:17)
[2022-01-18] MEDS: Polyethylene Glycol 3350 17 GM PACKET PO SCH (08:30)
[2022-01-18] MEDS: Aspirin EC 81 mg TAB.EC (enteric coated) PO SCH (08:31)
[2022-01-18] MEDS: Senna TAB 8.6 mg TAB PO SCH ×2 (08:33)
[2022-01-18 08:41] VITALS: BP 112/60
[2022-01-18 09:18] LABS: Rapid COVID-19 Molecular Undetected (Undetected)
[2022-01-18 12:21] LABS: ACTH 19 pg/mL
== END 2022-01-18 14:26 | DRG 720 ==
LOC: ED 12:04 → EDHOLD 16:58 → SUATTDRO 16:58 → ICU 12-28 13:28 → MEDTELE 12-28 18:18 → ICU 01-03 06:50 → MEDTELE 01-06 18:45
PROVIDERS: ADMIT Internal Medicine; ATTEND Student in an Organized Health Care Education/Training Program

== ENCOUNTER 2022-01-27 09:23 | Inpatient (IN) ==
[2022-01-27] MEDS ORDERED: NS 0.9% 1000 ml BAG 1,000 ML IV ONE (10:50)
[2022-01-27 10:57] LABS: ABS Basophils 0.1 10^3/ul (0-0.2); ABS Eosinophils 0.2 10^3/ul (0-0.6); ABS Lymphocytes 1.3 10^3/ul (1.0-4.8); ABS Monocytes 1.6 10^3/ul (0-0.8); ABS Neutrophils 38.7 10^3/ul (1.5-7.7); Eosinophil % 0.6 %; Hematocrit 21 % (42-52); Hemoglobin 6.3 g/dL (14.0-18.0); Lymphocyte % 3.1 %; Mean Corpuscular HGB Conc 30 g/dL (31-36); Mean Corpuscular Hemoglobin 24 pg (27-31); Mean Corpuscular Volume 82 fL (80-94); Mean Platelet Volume 6.7 fL (7.4-10.4); Platelet Count 539 10^3/uL (150-450); Red Blood Count 2.62 10^6 /uL (4.18-5.48); Red Cell Distribution Width 23 % (10-15); White Blood Count 41.9 10^3/uL (3.5-10.8)
[2022-01-27 11:13] LABS: Anisocytosis 1+
[2022-01-27 11:32] LABS: Anion Gap 2 mmol/L (2-11); Blood Urea Nitrogen 8 mg/dL (6-24); CO2 Carbon Dioxide 40 mmol/L (22-32); Calcium 7.6 mg/dL (8.6-10.3); Chloride 97 mmol/L (101-111); Glucose 72 mg/dL (70-100); Potassium 4.2 mmol/L (3.5-5.0); Sodium 139 mmol/L (135-145); eGFR CKD-EPI 109.7 (>60)
[2022-01-27 11:32] LABS: Urine Appearance Clear; Urine Color Yellow
[2022-01-27 11:33] LABS: Urine Bilirubin Negative (Negative); Urine Blood Negative (Negative); Urine Glucose Negative (Negative); Urine Ketones Negative (Negative); Urine Nitrite Negative (Negative); Urine Protein Negative (Negative); Urine Urobilinogen 0.2 (Negative) (Negative); Urine pH 7.5 (5.0-9.0)
[2022-01-27 12:38] LABS: Magnesium 1.7 mg/dL (1.9-2.7)
[2022-01-27] MEDS ORDERED: Hydrocortisone INJ 100 MG/2ML 2 ML VIAL IV ONE (14:48)
[2022-01-27] MEDS ORDERED: Hydrocortisone INJ 100 MG/2ML 2 ML VIAL ONE (14:50)
[2022-01-27] MEDS ORDERED: Vancomycin 1,000 MG in NS 0.9% 250 ml 250 ML IVPB ONE (14:54)
[2022-01-27] MEDS ORDERED: Piperacillin/Tazobac ADVAN 3.375 GM in NS 0.9% 100 ml BAG 100 ML IV ONE (14:55)
[2022-01-27] MEDS ORDERED: Magnesium Sulfate 2 gm BAG 2 GM/50 ML BAG IVPB ONE (14:58)
[2022-01-27] MEDS ORDERED: Vancomycin per Pharmacy 1 EA NOTE FOLLOW UP SCH (15:00)
[2022-01-27] MEDS ORDERED: Zosyn per Pharmacy NOTE FOLLOW UP SCH (15:00)
[2022-01-27] MEDS ORDERED: NS 0.9% 1000 ml BAG 1,000 ML IV SCH (15:00)
[2022-01-27] MEDS ORDERED: Magnesium Hydroxide LIQ 30 ML UDC PO PRN (15:13)
[2022-01-27] MEDS ORDERED: Albuterol/Ipratropium NEB.SOL (2.5/0.5 MG) 3 ML NEB.SOLN INH PRN (15:13)
[2022-01-27] MEDS ORDERED: Vancomycin 1,500 MG in NS 0.9% 250 ml 250 ML IVPB ONE (15:30)
[2022-01-27] MEDS ORDERED: NS 0.9% 500 ml BAG 500 ML IV ONE (15:41)
[2022-01-27 16:20] LABS: ALT 6 U/L (7-52); AST 10 U/L (13-39); Albumin 2.3 g/dL (3.2-5.2); Alkaline Phosphatase 128 U/L (35-149); Globulin 2.4 g/dL (2-4); Phosphorus 3.2 mg/dL (2.5-5.0); Total Protein 4.7 g/dL (6.4-8.9)
[2022-01-27] MEDS ORDERED: Iohexol 350 (CONTRAST) 500 ML MDV IV ONE (18:07)
[2022-01-27 18:32] LABS: Total Iron Binding Capacity 123 mcg/dL (250-450); Transferrin 88 mg/dL (203-362)
[2022-01-27 18:33] LABS: % Iron Saturation 16 % (15-55); Iron < 20 ug/dL (50-212); Unsaturated Iron Binding 103 ug/dL
[2022-01-27] MEDS: ZOSYN 3.375 GM Q8H per EXTENDED INFUSION IV SCH (19:13)
[2022-01-27 21:07] LABS: Hematocrit 23 % (42-52); Mean Corpuscular HGB Conc 30 g/dL (31-36); Mean Corpuscular Hemoglobin 24 pg (27-31); Mean Corpuscular Volume 82 fL (80-94); Mean Platelet Volume 6.4 fL (7.4-10.4); Platelet Count 505 10^3/uL (150-450); Red Blood Count 2.84 10^6 /uL (4.18-5.48); Red Cell Distribution Width 21 % (10-15); White Blood Count 49.9 10^3/uL (3.5-10.8)
[2022-01-27 21:08] LABS: ABS Basophils 0.1 10^3/ul (0-0.2); ABS Lymphocytes 0.4 10^3/ul (1.0-4.8); ABS Monocytes 0.8 10^3/ul (0-0.8); ABS Neutrophils 48.6 10^3/ul (1.5-7.7); Eosinophil % 0.1 %; Lymphocyte % 0.7 %
[2022-01-27] MEDS: Clotrimazole 1% CREAM 30 gm TOPICAL SCH (22:30)
[2022-01-27] MEDS: Mometasone/Formoter 100/5 MDI INH SCH (23:08)
[2022-01-27] MEDS: Hydrocortisone INJ 100 MG/2ML 2 ML VIAL IV SCH (23:17)
[2022-01-28] MEDS: Vancomycin 1,500 MG in NS 0.9% 250 ml 250 ML IVPB SCH ×2 (02:53→14:41)
[2022-01-28] MEDS: ZOSYN 3.375 GM Q8H per EXTENDED INFUSION IV SCH ×3 (04:27→19:34)
[2022-01-28 04:39] LABS: Hematocrit 22 % (42-52); Hemoglobin 6.6 g/dL (14.0-18.0); Mean Corpuscular HGB Conc 30 g/dL (31-36); Mean Corpuscular Hemoglobin 25 pg (27-31); Mean Corpuscular Volume 82 fL (80-94); Mean Platelet Volume 6.8 fL (7.4-10.4); Platelet Count 478 10^3/uL (150-450); Red Blood Count 2.68 10^6 /uL (4.18-5.48); Red Cell Distribution Width 21 % (10-15); White Blood Count 54.2 10^3/uL (3.5-10.8)
[2022-01-28 04:41] LABS: ABS Basophils 0.1 10^3/ul (0-0.2); ABS Lymphocytes 0.5 10^3/ul (1.0-4.8); ABS Monocytes 0.8 10^3/ul (0-0.8); ABS Neutrophils 52.9 10^3/ul (1.5-7.7); Lymphocyte % 0.8 %
[2022-01-28 04:53] LABS: INR 1.47 (0.86-1.15)
[2022-01-28 05:21] LABS: Albumin 2.1 g/dL (3.2-5.2); Albumin/Globulin Ratio 0.9 (1-3); Calcium 7.5 mg/dL (8.6-10.3); Globulin 2.3 g/dL (2-4); Magnesium 1.9 mg/dL (1.9-2.7); Potassium 3.9 mmol/L (3.5-5.0); Total Bilirubin 0.4 mg/dL (0.2-1.0); Total Protein 4.4 g/dL (6.4-8.9); eGFR CKD-EPI 114.6 (>60)
[2022-01-28] MEDS: Hydrocortisone INJ 100 MG/2ML 2 ML VIAL IV SCH (07:43)
[2022-01-28] MEDS: Polyethylene Glycol 3350 17 GM PACKET PO SCH (07:43)
[2022-01-28] MEDS: Senna TAB 8.6 mg TAB PO SCH (07:43)
[2022-01-28] MEDS: Mometasone/Formoter 100/5 MDI INH SCH ×2 (07:56→21:31)
[2022-01-28] MEDS ORDERED: HYDROCORTISONE 20 MG PO SCH (09:00)
[2022-01-28 09:20] LABS: C Reactive Protein 222.5 mg/L (<8.01)
[2022-01-28 11:57] LABS: Hematocrit 24 % (42-52); Hemoglobin 7.5 g/dL (14.0-18.0); Mean Corpuscular HGB Conc 31 g/dL (31-36); Mean Corpuscular Hemoglobin 25 pg (27-31); Mean Corpuscular Volume 81 fL (80-94); Mean Platelet Volume 6.5 fL (7.4-10.4); Platelet Count 500 10^3/uL (150-450); Red Cell Distribution Width 21 % (10-15); White Blood Count 56.5 10^3/uL (3.5-10.8)
[2022-01-28 11:59] LABS: ABS Basophils 0.2 10^3/ul (0-0.2); ABS Lymphocytes 0.4 10^3/ul (1.0-4.8); ABS Neutrophils 54.9 10^3/ul (1.5-7.7); Lymphocyte % 0.8 %
[2022-01-28] MEDS: Clotrimazole 1% CREAM 30 gm TOPICAL SCH (21:41)
[2022-01-29] MEDS: Vancomycin 1,500 MG in NS 0.9% 250 ml 250 ML IVPB SCH ×2 (03:11→17:02)
[2022-01-29] MEDS: ZOSYN 3.375 GM Q8H per EXTENDED INFUSION IV SCH ×3 (03:11→21:52)
[2022-01-29 04:35] LABS: Hematocrit 25 % (42-52); Hemoglobin 7.6 g/dL (14.0-18.0); Mean Corpuscular HGB Conc 30 g/dL (31-36); Mean Corpuscular Hemoglobin 25 pg (27-31); Mean Corpuscular Volume 81 fL (80-94); Mean Platelet Volume 6.6 fL (7.4-10.4); Platelet Count 519 10^3/uL (150-450); Red Blood Count 3.09 10^6 /uL (4.18-5.48); Red Cell Distribution Width 21 % (10-15); White Blood Count 61.4 10^3/uL (3.5-10.8)
[2022-01-29 05:10] LABS: Calcium 7.5 mg/dL (8.6-10.3); Phosphorus 2.9 mg/dL (2.5-5.0); eGFR CKD-EPI 112.1 (>60)
[2022-01-29] MEDS: Mometasone/Formoter 100/5 MDI INH SCH ×2 (07:31→19:13)
[2022-01-29 08:17] LABS: ABS Basophils 0.3 10^3/ul (0-0.2); ABS Lymphocytes 0.5 10^3/ul (1.0-4.8); ABS Monocytes 1.1 10^3/ul (0-0.8); ABS Neutrophils 59.4 10^3/ul (1.5-7.7); Lymphocyte % 0.9 %
[2022-01-29] MEDS: Senna TAB 8.6 mg TAB PO SCH (09:03)
[2022-01-29] MEDS: Polyethylene Glycol 3350 17 GM PACKET PO SCH (09:04)
[2022-01-29] MEDS ORDERED: Vancomycin Trough Check NOTE FOLLOW UP ONE (14:30)
[2022-01-29] MEDS: Clotrimazole 1% CREAM 30 gm TOPICAL SCH ×2 (21:07)
[2022-01-30 00:36] LABS: Hematocrit 25 % (42-52); Hemoglobin 7.5 g/dL (14.0-18.0)
[2022-01-30 02:16] LABS: Urine Appearance Cloudy; Urine Bilirubin Negative (Negative); Urine Blood 3+ (Negative); Urine Color Yellow; Urine Glucose Negative (Negative); Urine Ketones Negative (Negative); Urine Nitrite Negative (Negative); Urine Protein Negative (Negative); Urine Urobilinogen Negative (Negative)
[2022-01-30 02:20] LABS: Urine Bacteria Absent (Absent); Urine Red Blood Cell 3+(>10/hpf) (Absent); Urine White Blood Cell 3+(>20/hpf) (Absent)
[2022-01-30] MEDS: Vancomycin 1,500 MG in NS 0.9% 250 ml 250 ML IVPB SCH ×2 (03:32→15:34)
[2022-01-30] MEDS: ZOSYN 3.375 GM Q8H per EXTENDED INFUSION IV SCH ×3 (03:33→21:48)
[2022-01-30 05:14] LABS: Hematocrit 24 % (42-52); Hemoglobin 7.4 g/dL (14.0-18.0); Mean Corpuscular HGB Conc 31 g/dL (31-36); Mean Corpuscular Hemoglobin 25 pg (27-31); Mean Corpuscular Volume 82 fL (80-94); Mean Platelet Volume 6.4 fL (7.4-10.4); Platelet Count 502 10^3/uL (150-450); Red Blood Count 2.94 10^6 /uL (4.18-5.48); Red Cell Distribution Width 21 % (10-15); White Blood Count 60.2 10^3/uL (3.5-10.8)
[2022-01-30 05:21] LABS: ABS Lymphocytes 0.7 10^3/ul (1.0-4.8); ABS Monocytes 1.2 10^3/ul (0-0.8); ABS Neutrophils 58.2 10^3/ul (1.5-7.7); Lymphocyte % 1.1 %
[2022-01-30 05:48] LABS: Calcium 7.7 mg/dL (8.6-10.3); Magnesium 1.8 mg/dL (1.9-2.7); eGFR CKD-EPI 114.6 (>60)
[2022-01-30] MEDS: Mometasone/Formoter 100/5 MDI INH SCH ×2 (08:13→19:01)
[2022-01-30] MEDS ORDERED: Magnesium Sulfate 2 gm BAG 2 GM/50 ML BAG IVPB ONE (08:49)
[2022-01-30] MEDS: Potassium Chlor 20 meq TAB.ER PO SCH ×2 (10:12→16:04)
[2022-01-30] MEDS: Polyethylene Glycol 3350 17 GM PACKET PO SCH (10:13)
[2022-01-30] MEDS: Senna TAB 8.6 mg TAB PO SCH (10:13)
[2022-01-30 11:14] LABS: Activated Partial Thrombo Time 29.1 seconds (26.0-38.0); INR 1.17 (0.86-1.15)
[2022-01-30] MEDS: Heparin 5000 UNITS/ML 1 mL VIAL SUBCUT SCH ×2 (16:04→22:05)
[2022-01-30] MEDS: Clotrimazole 1% CREAM 30 gm TOPICAL SCH (22:06)
[2022-01-31] MEDS: Vancomycin 1,500 MG in NS 0.9% 250 ml 250 ML IVPB SCH ×2 (03:51→16:08)
[2022-01-31] MEDS: ZOSYN 3.375 GM Q8H per EXTENDED INFUSION IV SCH ×3 (04:01→19:16)
[2022-01-31 04:29] LABS: Hematocrit 26 % (42-52); Hemoglobin 8.2 g/dL (14.0-18.0); Mean Corpuscular HGB Conc 31 g/dL (31-36); Mean Corpuscular Hemoglobin 26 pg (27-31); Mean Corpuscular Volume 83 fL (80-94); Mean Platelet Volume 6.7 fL (7.4-10.4); Platelet Count 513 10^3/uL (150-450); Red Blood Count 3.19 10^6 /uL (4.18-5.48); Red Cell Distribution Width 21 % (10-15); White Blood Count 69.6 10^3/uL (3.5-10.8)
[2022-01-31 04:44] LABS: Calcium 7.8 mg/dL (8.6-10.3); Magnesium 1.9 mg/dL (1.9-2.7); Potassium 3.1 mmol/L (3.5-5.0); eGFR CKD-EPI 114.6 (>60)
[2022-01-31 05:42] LABS: ABS Basophils 0.4 10^3/ul (0-0.2); ABS Lymphocytes 0.6 10^3/ul (1.0-4.8); ABS Monocytes 1.3 10^3/ul (0-0.8); ABS Neutrophils 67.4 10^3/ul (1.5-7.7); Lymphocyte % 0.8 %
[2022-01-31] MEDS: Heparin 5000 UNITS/ML 1 mL VIAL SUBCUT SCH (07:09)
[2022-01-31] MEDS ORDERED: Magnesium Sulfate 2 gm BAG 2 GM/50 ML BAG IVPB ONE (07:17)
[2022-01-31] MEDS: Mometasone/Formoter 100/5 MDI INH SCH ×2 (07:39→19:00)
[2022-01-31] MEDS ORDERED: Potassium Chlor 20 meq TAB.ER PO ONE (07:40)
[2022-01-31] MEDS: Polyethylene Glycol 3350 17 GM PACKET PO SCH (09:42)
[2022-01-31] MEDS: Potassium Chlor 20 meq TAB.ER PO ONE ×2 (09:43→13:02)
[2022-01-31] MEDS: Senna TAB 8.6 mg TAB PO SCH (09:43)
[2022-01-31] MEDS: Clotrimazole 1% CREAM 30 gm TOPICAL SCH ×2 (20:56→21:01)
[2022-02-01] MEDS: ZOSYN 3.375 GM Q8H per EXTENDED INFUSION IV SCH (03:06)
[2022-02-01 06:19] LABS: Hematocrit 27 % (42-52); Hemoglobin 8.2 g/dL (14.0-18.0); Mean Corpuscular HGB Conc 30 g/dL (31-36); Mean Corpuscular Hemoglobin 25 pg (27-31); Mean Corpuscular Volume 82 fL (80-94); Mean Platelet Volume 6.6 fL (7.4-10.4); Platelet Count 527 10^3/uL (150-450); Red Blood Count 3.32 10^6 /uL (4.18-5.48); Red Cell Distribution Width 21 % (10-15); White Blood Count 66.3 10^3/uL (3.5-10.8)
[2022-02-01 06:47] LABS: Calcium 7.7 mg/dL (8.6-10.3); Magnesium 1.7 mg/dL (1.9-2.7); eGFR CKD-EPI 114.6 (>60)
[2022-02-01 06:49] LABS: Potassium 2.4 mmol/L (3.5-5.0)
[2022-02-01] MEDS ORDERED: Magnesium Sulfate IV 3 GM in NS 0.9% 100 ml BAG 100 ML IVPB ONE (06:56)
[2022-02-01] MEDS ORDERED: KCL 20 MEQ/100 ML IVPREMIX 20 MEQ/100 ML BAG IV SCH (07:00)
[2022-02-01] MEDS ORDERED: Magnesium Sulfate 2 GM IV (Premix) IVPB ONE (07:00)
[2022-02-01 07:01] LABS: ABS Lymphocytes 1.1 10^3/ul (1.0-4.8); ABS Monocytes 1.5 10^3/ul (0-0.8); ABS Neutrophils 63.5 10^3/ul (1.5-7.7); Lymphocyte % 1.7 %
[2022-02-01] MEDS: Mometasone/Formoter 100/5 MDI INH SCH ×2 (07:18→19:58)
[2022-02-01] MEDS ORDERED: Magnesium Sulfate 1 GM IV 1 GM/100 ML BAG IV ONE (08:00)
[2022-02-01] MEDS: Potassium Chlor 20 meq TAB.ER PO SCH ×2 (08:38→10:15)
[2022-02-01] MEDS: Polyethylene Glycol 3350 17 GM PACKET PO SCH (09:40)
[2022-02-01] MEDS: Senna TAB 8.6 mg TAB PO SCH (09:40)
[2022-02-01] MEDS: Cefepime 2 GM in Dextrose 2 GM/50 ML BAG IV SCH ×2 (10:09→18:12)
[2022-02-01 10:40] LABS: High Sensitivity Troponin 1 Hr 8 pg/mL (<20)
[2022-02-01 16:34] LABS: Calcium 7.2 mg/dL (8.6-10.3); Magnesium 1.9 mg/dL (1.9-2.7); Potassium 2.8 mmol/L (3.5-5.0); eGFR CKD-EPI 113.3 (>60)
[2022-02-01] MEDS ORDERED: Potassium Chlor 20 meq TAB.ER PO ONE ×2 (17:03→19:00)
[2022-02-01] MEDS: Clotrimazole 1% CREAM 30 gm TOPICAL SCH (22:03)
[2022-02-01 22:33] LABS: Calcium 7.3 mg/dL (8.6-10.3); eGFR CKD-EPI 120.7 (>60)
[2022-02-01 22:52] LABS: Potassium 2.7 mmol/L (3.5-5.0)
[2022-02-02] MEDS: KCL 20 MEQ/100 ML IVPREMIX 20 MEQ/100 ML BAG IV SCH ×4 (01:58→10:38)
[2022-02-02] MEDS: Cefepime 2 GM in Dextrose 2 GM/50 ML BAG IV SCH ×3 (02:01→18:07)
[2022-02-02 03:05] LABS: Magnesium 1.7 mg/dL (1.9-2.7)
[2022-02-02] MEDS ORDERED: Magnesium Sulfate 2 gm BAG 2 GM/50 ML BAG IVPB ONE (03:10)
[2022-02-02 07:58] LABS: ABS Basophils 0.1 10^3/ul (0-0.2); ABS Eosinophils 0.1 10^3/ul (0-0.6); ABS Monocytes 1.4 10^3/ul (0-0.8); ABS Neutrophils 58.4 10^3/ul (1.5-7.7); Eosinophil % 0.1 %; Hematocrit 26 % (42-52); Lymphocyte % 1.7 %; Mean Corpuscular HGB Conc 31 g/dL (31-36); Mean Corpuscular Hemoglobin 25 pg (27-31); Mean Corpuscular Volume 83 fL (80-94); Mean Platelet Volume 6.7 fL (7.4-10.4); Platelet Count 483 10^3/uL (150-450); Red Blood Count 3.16 10^6 /uL (4.18-5.48); Red Cell Distribution Width 22 % (10-15)
[2022-02-02 08:23] LABS: RBC Morphology Normal (Normal)
[2022-02-02] MEDS: Mometasone/Formoter 100/5 MDI INH SCH ×2 (08:28→19:28)
[2022-02-02 08:41] LABS: Blood Urea Nitrogen 8 mg/dL (6-24); Calcium 7.7 mg/dL (8.6-10.3); Chloride 90 mmol/L (101-111); Glucose 110 mg/dL (70-100); Magnesium 1.9 mg/dL (1.9-2.7); Phosphorus 2.8 mg/dL (2.5-5.0); Potassium 2.8 mmol/L (3.5-5.0); Sodium 144 mmol/L (135-145); eGFR CKD-EPI 118.3 (>60)
[2022-02-02] MEDS ORDERED: Potassium Chlor 20 meq TAB.ER PO ONE ×2 (08:46→11:00)
[2022-02-02 09:00] LABS: CO2 Carbon Dioxide 46 mmol/L (22-32)
[2022-02-02] MEDS: Senna TAB 8.6 mg TAB PO SCH (10:40)
[2022-02-02] MEDS: Polyethylene Glycol 3350 17 GM PACKET PO SCH (10:43)
[2022-02-02] MEDS ORDERED: Morphine 2 MG/ML SYRINGE ONE (14:05)
[2022-02-02] MEDS: Morphine 2 MG/ML SYRINGE IV PRN ×2 (14:14→19:01)
[2022-02-02] MEDS ORDERED: Morphine 2 MG/ML SYRINGE IV ONE (14:48)
[2022-02-02 16:38] LABS: Albumin 2.4 g/dL (3.2-5.2); Calcium 7.4 mg/dL (8.6-10.3); Globulin 2.3 g/dL (2-4); Magnesium 1.7 mg/dL (1.9-2.7); Potassium 2.9 mmol/L (3.5-5.0); Total Bilirubin 0.4 mg/dL (0.2-1.0); Total Protein 4.7 g/dL (6.4-8.9); eGFR CKD-EPI 117.5 (>60)
[2022-02-02] MEDS ORDERED: Lactated Ringers 1000 ml BAG 1,000 ML IV ONE (16:54)
[2022-02-02] MEDS: Clotrimazole 1% CREAM 30 gm TOPICAL SCH (20:37)
[2022-02-02] MEDS: metroNIDAZOLE IV 500 MG/100ML 500 MG/100 ML BAG IVPB SCH (20:57)
[2022-02-03] MEDS: metroNIDAZOLE IV 500 MG/100ML 500 MG/100 ML BAG IVPB SCH ×3 (04:05→19:58)
[2022-02-03] MEDS: Cefepime 2 GM in Dextrose 2 GM/50 ML BAG IV SCH ×3 (04:05→18:59)
[2022-02-03 05:41] LABS: Hematocrit 25 % (42-52); Hemoglobin 7.6 g/dL (14.0-18.0); Mean Corpuscular HGB Conc 31 g/dL (31-36); Mean Corpuscular Hemoglobin 25 pg (27-31); Mean Corpuscular Volume 82 fL (80-94); Mean Platelet Volume 6.8 fL (7.4-10.4); Platelet Count 437 10^3/uL (150-450); Red Cell Distribution Width 22 % (10-15); White Blood Count 55.1 10^3/uL (3.5-10.8)
[2022-02-03 05:45] LABS: ABS Basophils 0.1 10^3/ul (0-0.2); ABS Lymphocytes 0.5 10^3/ul (1.0-4.8); ABS Monocytes 0.8 10^3/ul (0-0.8); ABS Neutrophils 53.7 10^3/ul (1.5-7.7); Lymphocyte % 0.9 %
[2022-02-03 06:21] LABS: Blood Urea Nitrogen 9 mg/dL (6-24); Calcium 7.6 mg/dL (8.6-10.3); Chloride 93 mmol/L (101-111); Glucose 110 mg/dL (70-100); Magnesium 1.7 mg/dL (1.9-2.7); Potassium 3.3 mmol/L (3.5-5.0); Sodium 142 mmol/L (135-145); eGFR CKD-EPI 119.1 (>60)
[2022-02-03 06:40] LABS: CO2 Carbon Dioxide 47 mmol/L (22-32)
[2022-02-03] MEDS ORDERED: Magnesium Sulfate IV 3 GM in NS 0.9% 100 ml BAG 100 ML IVPB ONE (07:16)
[2022-02-03] MEDS: Mometasone/Formoter 100/5 MDI INH SCH ×2 (07:21→19:38)
[2022-02-03] MEDS ORDERED: Magnesium Sulfate 2 GM IV (Premix) IVPB ONE (08:00)
[2022-02-03] MEDS: KCL 20 MEQ/100 ML IVPREMIX 20 MEQ/100 ML BAG IV SCH ×3 (08:39→13:11)
[2022-02-03] MEDS: Polyethylene Glycol 3350 17 GM PACKET PO SCH (09:00)
[2022-02-03] MEDS ORDERED: Magnesium Sulfate 1 GM IV 1 GM/100 ML BAG IV ONE (09:00)
[2022-02-03] MEDS: Senna TAB 8.6 mg TAB PO SCH (09:00)
[2022-02-03 10:56] LABS: LDH 274 U/L (140-271)
[2022-02-03] MEDS: Morphine 2 MG/ML SYRINGE IV PRN ×2 (13:10→17:15)
[2022-02-03] MEDS ORDERED: Ondansetron ODT 4 mg TAB 4 MG TAB SL PRN (19:14)
[2022-02-03] MEDS: Clotrimazole 1% CREAM 30 gm TOPICAL SCH (20:01)
[2022-02-03] MEDS: Morphine ORAL CONCENTRATE 5 MG/0.25 ML ORAL.SYRIN SL PRN (21:24)
[2022-02-04 01:15] VITALS: BP 116/57
[2022-02-04] MEDS: metroNIDAZOLE IV 500 MG/100ML 500 MG/100 ML BAG IVPB SCH ×2 (03:31→10:36)
[2022-02-04] MEDS: Cefepime 2 GM in Dextrose 2 GM/50 ML BAG IV SCH ×2 (03:31→09:07)
[2022-02-04] MEDS: Morphine ORAL CONCENTRATE 5 MG/0.25 ML ORAL.SYRIN SL PRN ×3 (03:31→13:07)
[2022-02-04] MEDS: Mometasone/Formoter 100/5 MDI INH SCH (07:26)
[2022-02-04] MEDS: Senna TAB 8.6 mg TAB PO SCH (09:04)
[2022-02-04] MEDS: Polyethylene Glycol 3350 17 GM PACKET PO SCH (09:07)
== END 2022-02-04 13:23 | disposition hospice, home (50) | DRG 720 ==
LOC: ED 09:23 → SUATTDRO 14:00 → EDHOLD 14:00 → ICU 16:40 → MEDTELE 01-29 21:29
PROVIDERS: ADMIT Internal Medicine; ATTEND Internal Medicine

== ENCOUNTER 2022-02-09 13:02 | Inpatient (IN) ==
[2022-02-09] MEDS ORDERED: Lorazepam PYXIS KEY PRN (14:50)
[2022-02-09] MEDS ORDERED: fentaNYL PATCH 75 MCG/HR 1 PATCH TRANSDERM SCH (17:00)
[2022-02-09] MEDS: LORazepam 2 mg VIAL 1 ml IV PUSH PRN (17:36)
[2022-02-09] MEDS ORDERED: Acetaminophen IV 1 GM/100ML 100 ML IV ONE (18:00)
[2022-02-09] MEDS: fentaNYL Patch Check Q Shift NOTE FOLLOW UP SCH (19:03)
[2022-02-09] MEDS: Acetaminophen IV 1 GM/100ML 100 ML IV PRN (21:31)
[2022-02-10] MEDS: LORazepam 2 mg VIAL 1 ml IV PUSH PRN ×6 (04:33→21:24)
[2022-02-10] MEDS: fentaNYL Patch Check Q Shift NOTE FOLLOW UP SCH (07:24)
[2022-02-10] MEDS: Acetaminophen IV 1 GM/100ML 100 ML IV PRN (09:07)
[2022-02-11] MEDS: LORazepam 2 mg VIAL 1 ml IV PUSH PRN ×8 (00:05→19:30)
[2022-02-11] MEDS: fentaNYL Patch Check Q Shift NOTE FOLLOW UP SCH ×3 (00:27→19:33)
[2022-02-11] MEDS: Acetaminophen IV 1 GM/100ML 100 ML IV PRN ×2 (01:32→10:00)
[2022-02-11] MEDS ORDERED: Atropine 1% (ORAL/SL) 15 ML BTL SL ONE (03:00)
[2022-02-11] MEDS: Morphine 2 MG/ML SYRINGE IV SCH ×4 (03:01→06:35)
[2022-02-11] MEDS ORDERED: Lorazepam PYXIS KEY PRN (16:27)
[2022-02-11] MEDS ORDERED: fentaNYL PATCH 100 MCG/HR 1 PATCH TRANSDERM SCH (16:29)
[2022-02-11] MEDS: LORazepam 2 mg VIAL 1 ml IV PUSH SCH ×2 (17:22→22:11)
[2022-02-11] MEDS: Glycopyrrolate IV 0.2 MG/ML 1 ML VIAL IV SLOW PU SCH ×2 (17:24→23:35)
[2022-02-11 23:33] VITALS: BP 64/38
[2022-02-12] MEDS: LORazepam 2 mg VIAL 1 ml IV PUSH PRN ×2 (01:17→05:10)
[2022-02-12] MEDS: Glycopyrrolate IV 0.2 MG/ML 1 ML VIAL IV SLOW PU SCH (05:17)
[2022-02-12] MEDS: LORazepam 2 mg VIAL 1 ml IV PUSH SCH (05:44)
[2022-02-12] MEDS: fentaNYL Patch Check Q Shift NOTE FOLLOW UP SCH (07:10)
== END 2022-02-12 09:30 | disposition expired | DRG 862 ==
LOC: ED 13:02 → EDHOLD 14:50 → SSU 16:36
PROVIDERS: ADMIT Internal Medicine Hematology & Oncology; ATTEND Internal Medicine Hematology & Oncology